=== PATIENT | female | born 1980 | race Caucasian/White ===

== ENCOUNTER 2021-02-21 11:16 | Inpatient (IN) | payer MEDICAID, OTHER ==
[~2021-02-21] VITALS: Ht 160 cm; Wt 72.7 kg
[~2021-02-21 11:16] MED LIST: CELE10TA PO; EFFE75CA75 OR; ESTRADIOL ACETATE; KEFL500C OR; LAMICTAL PO; LEVA500T; LYRI75CA; TERCONAZOLE; TRAZ100T OR; TRAZ50TA OR; TRAZODONE PO; TRIL600T PO; VICO5TAB OR; VIST50CA OR; VIVELLE; ZOLO100T OR
[2021-02-21 13:21] LABS: HEMATOCRIT 43.5 % (36.0-47.0); HEMOGLOBIN 14.4 g/dl (12.0-15.5); MEAN CORPUSCULAR HEMOGLOBIN 28.6 pg (27.0-33.0); MEAN CORPUSCULAR HGB CONC 33.1 g/dl (32.0-36.5); MEAN CORPUSCULAR VOLUME 86.5 fl (80.0-96.0); PLATELET COUNT, AUTOMATED 320 10^3/uL (150-450); RED BLOOD COUNT 5.03 10^6/uL (4.00-5.40); WHITE BLOOD COUNT 9.5 10^3/uL (4.0-10.0)
[2021-02-21 13:41] LABS: HCG, SERUM QUALITATIVE NEGATIVE (NEGATIVE)
[2021-02-21 13:58] LABS: ACETAMINOPHEN LEVEL < 2.0 UG/ML (10.0-30.0); ALBUMIN 4.7 GM/DL (3.2-5.2); ALT/SGPT 34 U/L (12-78); BILIRUBIN,DIRECT 0.1 MG/DL (0.0-0.2); BILIRUBIN,TOTAL 0.9 MG/DL (0.2-1.0); BLOOD UREA NITROGEN 16 MG/DL (7-18); CALCIUM LEVEL 9.5 MG/DL (8.5-10.1); CARBON DIOXIDE LEVEL 23 MEQ/L (21-32); CHLORIDE LEVEL 108 MEQ/L (98-107); CREATININE FOR GFR 0.85 MG/DL (0.55-1.30); ETHYL ALCOHOL (ETHANOL) < 0.003 % (0.000-0.010); GLOMERULAR FILTRATION RATE > 60.0 (>60); GLUCOSE, FASTING 98 MG/DL (70-100); POTASSIUM SERUM 4.5 MEQ/L (3.5-5.1); SALICYLATE LEVEL 2.5 MG/DL (5.0-30.0); SODIUM LEVEL 139 MEQ/L (136-145); TOTAL PROTEIN 8.6 GM/DL (6.4-8.2)
[2021-02-21 15:47] LABS: AMPHETAMINES LEVEL URINE NEGATIVE (NEGATIVE); BARBITURATES URINE NEGATIVE (NEGATIVE); BENZODIAZEPINES URINE NEGATIVE (NEGATIVE); CANNABINOIDS URINE NEGATIVE (NEGATIVE); COCAINE METABOLITE URINE NEGATIVE (NEGATIVE); METHADONE URINE NEGATIVE (NEGATIVE); OPIATES URINE NEGATIVE (NEGATIVE); PHENCYCLIDINE URINE NEGATIVE (NEGATIVE)
[2021-02-22] MEDS ORDERED: HYDR50TA70 PO (08:29)
[2021-02-22] MEDS ORDERED: estradioL 1 MG TAB PO SCH (09:00)
[2021-02-22 11:50] LABS: RSV AMPLIFICATION NEGATIVE (NEGATIVE)
[2021-02-22] MEDS ORDERED: ACETAMINOPHEN TAB 650MG DOSE (2X325MG) PO PRN (12:05)
[2021-02-22] MEDS ORDERED: MAALOX 30 ML SUSP *UDC PO PRN (12:05)
[2021-02-22] MEDS ORDERED: traZODone 50 MG TAB PO PRN (12:05)
[2021-02-22] MEDS ORDERED: MOM 30ML SUSPENSION UDC PO PRN (12:05)
[2021-02-22] MEDS ORDERED: ESTR0.5T3 PO (12:27)
[2021-02-22] MEDS ORDERED: HOME MED LIST COMPLETE! XX SCH (12:30)
[2021-02-22 14:54] VITALS: BP 135/109
[2021-02-22] MEDS: NICOTINE 21MG/24HR 1 EA TRANSDERMAL TD SCH (16:26)
[2021-02-22] MEDS: LORazepam 1 MG TAB PO PRN (20:32)
[2021-02-23] MEDS ORDERED: QUEtiapine FUMARATE 50MG TAB PO ONE (00:05)
[2021-02-23 06:11] VITALS: BP 125/76
[2021-02-23] MEDS ORDERED: ESTRADIOL 0.5 MG PO SCH (09:00)
[2021-02-23] MEDS ORDERED: ESTRADIOL PO SCH (09:00)
[2021-02-23] MEDS: estradioL 0.5MG HALF-TAB PO SCH (09:27)
[2021-02-23] MEDS: NICOTINE 21MG/24HR 1 EA TRANSDERMAL TD SCH (09:28)
--- NOTE | 2021-02-23 12:36 | MHHPEPDOC ---
General Date Of Admission: Feb 22, 2021 Legal Status: 9.39 Chief Complaint I am too tired to talk ". History of Present Illness HISTORY OF THE PRESENT ILLNESS: Patient is a 40 -year-old , female, who [has history of bipolar disorder with recent admission in December of this year but apparently has no ongoing outpatient treatment. Patient was brought to emergency room by police after she was acting quite bizarre in front of a [employer] building. Patient reportedly was claiming that 3 children were raped and killed and also claiming that she was sent by President [place] and is investigating sex trafficking. On the unit she apparently went to bed and slept and this morning when approached by the MD patient stated that she is too tired and sleepy to talk and refused to cooperate. The assessment is incomplete because of her refusal to cooperate. She appears somewhat elevated smiling inappropriately but in no acute distress.]. Psychiatric Review of Systems Depression (2 or more weeks): other (Patient denies any depression) Ellen (4 or more days of): flight of ideas Psychosis: delusions, paranoia, disorganization, other (Was acting bizarre and claims children being killed and raped) PTSD: denies, other Anxiety: other (Unable to evaluate) Anxiety/ 6 months or more of: other (Appears inappropriately elevated) Past Psychiatric History Previous Psychiatric Diagnosis: [Was a diagnosed with bipolar disorder as documented history of polysubstance abuse]. Previous Psychiatric Admissions: [Hospitalized at [facility] in 2013]. Suicide Attempts: [No documented history]. Psychiatric Follow-up: [Apparently not in any active treatment]. Psychiatric medications: [Unknown]. Past Medical History Medical Problems Documented history of having hysterectomy Head Injury: No Seizures: No Hospitalizations: Yes Surgeries: Yes (Past records shows patient's mother early age) Family Medical/Psychiatric HX Medical Problems Noncontributory Psychiatric Disorders: Yes (Patient's mother has a history of schizophrenia and substance abuse) Addiction: Yes (Mother has a history of substance abuse and father has a history of alcohol abuse) Suicide Attemps/Completions: No Addiction History other (Prior history of polysubstance abuse including opiate and cocaine.) Social History Childhood: [Patient's mother early and raised by her father and stepmother]. Abuse/Trauma: Unknown. Current Living Situation: [Unable to evaluate]. Education: Has high school education. 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 Social Support: [Unknown]. Legal: Unknown at this time. Marital: Was twice and has 3 children [her second was killed and he was an active duty soldier and she is getting VA benefits]. Mental Status Examination General Appearance: appears stated age Build: average Demeanor: preoccupied Eye Contact: avoidant Activity: anxious Behavior: uncooperative, agitated Speech: other (Refused to talk) Mood: irritable, elevated Mood Unable to evaluate patient reportedly was making statements about not wanting to wake up but also was very pressured and flighty Thought Process: other (Unable to evaluate) Thought Content (Delusions): bizarre, paranoia, delusions Thought Content (Other): other (Unable to evaluate) Thought Content (Aggressive): other (Was acting bizarre) Perception (Hallucinations): other (Possibly hallucinating) Cognition (Impairment of): other (Unable to evaluate) Cognition(Intelligence Est.): average (Poor history) Oriented: Awake, Alert Insight: poor Judgment: Poor Diagnoses Psychotic disorder NOS rule out bipolar disorder manic with psychosis A-FIB/CHADSVASC A-FIB History Current/History of A-Fib/PAF?: No Current PO Anticoag Therapy: No Age/Risk Factor Scoring CHADSVASC: CHADSVASC Response (Comments) Value Gender Risk Factor Female 1 Hx of CHF No 0 Hx of HTN No 0 Hx of Stroke/TIA/or VTE No 0 Hx of Diabetes No 0 Hx of Vascular Disease No 0 Total 1 Treatment Treatment ordered: NONE Assessment The patient appears grossly psychotic with long history of bipolar disorder. On admission tox continues negative for any drugs. She has been stable in the past admission with the lithium and risperidone but apparently she has not been compliant. She needs stabilization with medication and supportive therapy. Initial Treatment Plan 1. Patient was admitted on a 9.39 status. 2. Complete history was obtained. 3. With patients permission, family will be contacted and database will be expanded. 4. Patients medication regimen will be reviewed and changed accordingly. 5. Patient will be provided with protected environment. 6. Patient will be treated with individual, group, and milieu therapies. 7. Patient will receive supportive psych-education. 8. Discharge planning will commence immediately. 9. Outpatient follow-up treatment will be strongly recommended. 10. The initial treatment plan will focus initially on: * Depression. * Risk for suicide. ESTIMATED LENGTH OF STAY: 5-7 DAYS. TIME SPENT COUNSELING AND COORDINATING INITIAL CARE: 40 minutes. Tobacco Cessation Screen If Patient is a Smoker Smoker Complete/Results docum. Vital Signs Vital Signs Date Time Temp Pulse Resp B/P (MAP) Pulse Ox O2 Delivery O2 Flow Rate FiO2 02/23/21 06:11 97.7 85 18 125/76 (92) 100 Room Air Medications Scheduled Estradiol (Estrace) 0.5 Mg Tablet, 0.5 MG PO DAILY, (Reported) Hydroxyzine HCl (Hydroxyzine HCl) 50 Mg Tablet, 50 MG PO BID, (Reported) Allergies Coded Allergies: pineapple (Verified Allergy, Unknown, hives, 02/21/21) NSAIDS (Non-Steroidal Anti-Inflamma (Verified Adverse Reaction, Unknown, upset stomach, 02/21/21) ibuprofen (Verified Adverse Reaction, Unknown, vomiting, 02/21/21) EUNICE LOOMIS M.D. Feb 23, 2021 12:36
[2021-02-23] MEDS: LORazepam 1 MG TAB PO PRN (16:45)
--- NOTE | 2021-02-23 18:51 | HPEPDOC ---
[facility] Medical History & Physical Date of Admission Feb 22, 2021 Date of Service: Feb 23, 2021 History and Physical CHIEF COMPLAINT: Psychosis HISTORY OF PRESENT ILLNESS: Mrs. Gilmore is a 40 year old female who is in the inpatient mental health unit with psychosis. She was seen this afternoon. She feels physical fine. She recently had a total hysterectomy and is on Estradiol to reduce ovarian failure effects. She denies any fever/chills, chest pain, dyspnea, abdominal pain, or dysuria. Patient had pressured speech. She was asking about nicotine gum. I discussed this with the nurses, and we felt that it would be better for her to stay on the patch. PAST MEDICAL HISTORY: 1. Migraines 2. Hepatitis C 3. Constipation 4. Ovarian failure due to total hysterectomy PAST SURGICAL HISTORY: 1. Total hysterectomy 2. Laparoscopic cholecystectomy 3. x3 SOCIAL HISTORY: Tobacco use: Current smoker ETOH: Denies Illicit drug use: Denies FAMILY HISTORY: Declined answering past family history. Tells me it is in the chart. I do not see it in the chart ALLERGIES: Please see below. REVIEW OF SYSTEMS: CONSTITUTIONAL: Denies any fever or chills. ENT: Denies sore throat. RESPIRATORY: Denies shortness of breath. Denies cough. CARDIOVASCULAR: Denies chest pain. GASTROINTESTINAL: Denies abdominal pain. GENITOURINARY: Denies dysuria. CUTANEOUS: Denies rashes. HEMATOLOGICAL/ONCOLOGY: Denies bruises. NEUROLOGICAL: Denies paresthesias. PSYCHOLOGICAL: Reports anxiety. Reports depression. HOME MEDICATIONS: Please see below. PHYSICAL EXAMINATION: VITAL SIGNS: Temperature 97.7, pulse 85, respiratory rate 18, blood pressure 125/76, pulse oximetry 100% on room air. GENERAL: Comfortable, in no apparent distress. HEENT: EOMI, sclera clear. NECK: Supple. RESPIRATORY: Lungs clear to auscultation bilaterally, no rales, wheeze or rh onchi. CARDIOVASCULAR: Regular rate and rhythm. ABDOMEN: Soft, nontender, no guarding or rebound tenderness. Normal bowel sounds . MUSCLE SKELETAL: Muscle strength 5/5 in all extremities. NEUROLOGICAL: CN 312 grossly intact, no focal deficits noted. PSYCHOLOGICAL: Pressured speech, suspect manic LABORATORY DATA: See below. IMAGING: None MICROBIOLOGY: Please see below. ASSESSMENT and PLAN: 1. Psychosis Being managed in the inpatient mental health unit 2. Postsurgical ovarian failure Continue estradiol Thank you for consulting us. We will sign off at this time. If there is any further questions or concerns, please do not hesitate to reconsult us. Vital Signs Vital Signs Date Time Temp Pulse Resp B/P (MAP) Pulse Ox O2 Delivery O2 Flow Rate FiO2 02/23/21 06:11 97.7 85 18 125/76 (92) 100 Room Air Home Medications Scheduled Estradiol (Estrace) 0.5 Mg Tablet, 0.5 MG PO DAILY Hydroxyzine HCl (Hydroxyzine HCl) 50 Mg Tablet, 50 MG PO BID Allergies Coded Allergies: pineapple (Verified Allergy, Unknown, hives, 02/21/21) NSAIDS (Non-Steroidal Anti-Inflamma (Verified Adverse Reaction, Unknown, upset stomach, 02/21/21) ibuprofen (Verified Adverse Reaction, Unknown, vomiting, 02/21/21) A-FIB/CHADSVASC A-FIB History Current/History of A-Fib/PAF?: No Age/Risk Factor Scoring CHADSVASC: CHADSVASC Response (Comments) Value Gender Risk Factor Female 1 Hx of CHF No 0 Hx of HTN No 0 Hx of Stroke/TIA/or VTE No 0 Hx of Diabetes No 0 Hx of Vascular Disease No 0 Total 1 SEPGHULAM DO Feb 23, 2021 18:51
[2021-02-23 19:20] VITALS: BP 119/71
[2021-02-23] MEDS ORDERED: QUEtiapine FUMARATE 100 MG TAB PO SCH (21:00)
[2021-02-24] MEDS: estradioL 0.5MG HALF-TAB PO SCH (08:03)
[2021-02-24] MEDS: NICOTINE 21MG/24HR 1 EA TRANSDERMAL TD SCH (08:03)
--- NOTE | 2021-02-24 08:27 | MHIPNPDOC ---
[facility] Progress Note Progress Note DATE OF SERVICE: 02/24/21 The patient is alert awake and much more cooperative and verbally productive. She is however very pressured flighty talking fast and quite easily distracted. She claims that everybody told her that there sex trafficking going on and several children were in danger but does not know who they were. She is grossly delusional and quite manic with elevated mood and smiling inappropriately. She claims that she stopped taking lithium because it was making her too tired and could not function and has been staying in a halfway but working with social service to get her SSD and SSI approved. She stated that risperidone 4 mg was too much for her and does not really believe she needs any medications and refused to take Seroquel last night but reluctantly agreed to start taking small dose of risperidone. HISTORY:. VITAL SIGNS: See below. NEW TEST RESULTS:. CURRENT MEDICATIONS: See below. MENTAL STATUS EXAMINATION: Patient is a 40-year old female, who is in no acute distress. Speech: Is pressured flighty. Language skills are fair. Thought processes including: Very productive and pressured. Thought content: Preoccupied with the delusional thoughts but denies any suicidal thoughts. Abstract reasoning, and computation: Poor. Description of associations: Very flighty. Description of abnormal or psychotic thoughts: Grossly delusional but denies any command hallucination. Judgment: Poor. Insight: Poor. Orientation: Well oriented. Recent and remote memory: Unimpaired. Attention span and concentration: Poor. Language:. Fund of knowledge:. Mood: Elevated. Affect: Inappropriately elevated and labile. DIAGNOSES: 1.. Bipolar disorder manic with psychotic features 2.. Rule out schizoaffective disorder 3.. ASSESSMENT: Grossly manic with delusional thoughts MANAGEMENT PLAN: Patient is refusing lithium but agreed to take risperidone. Needs stabilization. TIME SPENT: 20 minutes. Vital Signs Vital Signs Date Time Temp Pulse Resp B/P (MAP) Pulse Ox O2 Delivery O2 Flow Rate FiO2 02/23/21 19:20 97.2 77 16 119/71 (87) 02/23/21 06:11 100 Room Air Current Medications Current Medications Medications (Trade) Dose Ordered Sig/Darrick Route PRN Reason Start Time Stop Time Status Last Admin Dose Admin Acetaminophen (Tylenol Tab) 650 mg Q6HP PRN PO HEADACHE or MILD DISCOMFORT 02/22/21 12:05 Al Hydrox/Mg Hydrox/Simethicone (Mylanta) 30 ml Q4HP PRN PO HEARTBURN/INDIGESTION 02/22/21 12:05 Estradiol (Estrace Susp) 0.5 mg DAILY PO 02/23/21 09:00 02/23/21 10:56 DC Estradiol (Estrace) 0.5 mg DAILY PO 02/22/21 09:00 02/22/21 20:00 DC Estradiol (Estrace) 0.5 mg DAILY PO 02/23/21 09:00 02/24/21 08:03 Home Med (Home Med List Complete!) ASDIRECTED XX 02/22/21 12:30 02/22/21 12:30 DC Lorazepam (Ativan) 1 mg Q4HP PRN PO ANXIETY/AGITATION 02/22/21 20:15 02/23/21 16:45 Magnesium Hydroxide (Milk Of Magnesia) 30 ml DAILYPRN PRN PO CONSTIPATION 02/22/21 12:05 Nicotine (Nicoderm Cq 21mg) 1 patch DAILY TD 02/22/21 09:00 02/24/21 08:03 Olanzapine (ZyPREXA ZYDIS) 10 mg Q4HP PRN PO ANXIETY/AGITATION 02/22/21 12:40 Patient Own Medication (Patient'S Own Med) Estradiol (Estrace) 0.... DAILY PO 02/23/21 09:00 02/23/21 08:21 DC Quetiapine Fumarate (SEROquel) 100 mg QHS PO 02/23/21 21:00 Trazodone HCl (Desyrel) 50 mg QHSP PRN PO INSOMNIA 02/22/21 12:05 Allergies Coded Allergies: pineapple (Verified Allergy, Unknown, hives, 02/21/21) NSAIDS (Non-Steroidal Anti-Inflamma (Verified Adverse Reaction, Unknown, upset stomach, 02/21/21) ibuprofen (Verified Adverse Reaction, Unknown, vomiting, 02/21/21) EUNICE LOOMIS M.D. Feb 24, 2021 08:27
[2021-02-24] MEDS: LORazepam 1 MG TAB PO PRN ×2 (09:31→20:07)
[2021-02-24] MEDS: NICOTINE POLACRILEX 2 MG GUM PO PRN ×2 (11:34→20:09)
[2021-02-24 17:12] VITALS: BP 147/85
[2021-02-24] MEDS: risperiDONE 2 MG TAB PO SCH (20:07)
[2021-02-25 07:18] VITALS: BP 142/96
[2021-02-25] MEDS: estradioL 0.5MG HALF-TAB PO SCH (09:56)
[2021-02-25] MEDS: NICOTINE POLACRILEX 2 MG GUM PO PRN ×3 (11:08→19:32)
[2021-02-25] MEDS: LORazepam 1 MG TAB PO PRN ×2 (12:55→20:18)
[2021-02-25 17:10] VITALS: BP 119/85
[2021-02-25] MEDS: risperiDONE 2 MG TAB PO SCH (20:19)
[2021-02-26] MEDS: NICOTINE POLACRILEX 2 MG GUM PO PRN ×4 (03:13→17:51)
[2021-02-26 06:36] VITALS: BP 118/59
[2021-02-26] MEDS: estradioL 0.5MG HALF-TAB PO SCH (09:24)
--- NOTE | 2021-02-26 11:48 | MHIPN ---
[facility] PROGRESS NOTE DATE: 02/25/2021 This is a video assessment. She is aware of it, agrees to it and its limitations. She is in the inpatient psychiatry unit, I am at home. VITAL SIGNS: Blood pressure 119/85, pulse 99, temperature 97.8 CHIEF COMPLAINT: Feels better SUBJECTIVE: Seen for followup. Indicates feels better and that she slept better. Does not think needs a higher dose of risperidone. Says had been on that, as well as other psychotropics, including lithium, together in the past, but says that was not effective. MENTAL STATUS EXAMINATION: Neat, cooperative. Coherent. Speech somewhat overproductive. Affect fairly broad, possibly a bit expansive. Denies any thoughts of harming herself or anyone else. No evidence of any psychosis at present. Cognition grossly intact. Judgment and insight possibly improved, but remains compromised. ASSESSMENT: 1. Bipolar disorder, current episode manic with psychotic features. 2. Rule out schizoaffective disorder. PLAN: Continue current care, observations. Encourage participation and activates as tolerated. Continue with the risperidone at the current dose. Further recommendation to be made depending on the clinical picture.
[2021-02-26] MEDS: LORazepam 1 MG TAB PO PRN ×2 (12:15→21:26)
[2021-02-26] MEDS: OLANZapine ORAL DISINTEGRATING TAB 5MG PO PRN (17:22)
[2021-02-26 18:15] VITALS: BP 121/69
[2021-02-26] MEDS: risperiDONE 2 MG TAB PO SCH (21:26)
[2021-02-27 06:40] VITALS: BP 116/80
[2021-02-27] MEDS: OLANZapine ORAL DISINTEGRATING TAB 5MG PO PRN (06:41)
[2021-02-27] MEDS: NICOTINE POLACRILEX 2 MG GUM PO PRN ×4 (06:41→20:02)
[2021-02-27] MEDS: LORazepam 1 MG TAB PO PRN ×2 (09:23→22:41)
[2021-02-27] MEDS: estradioL 0.5MG HALF-TAB PO SCH (09:24)
--- NOTE | 2021-02-27 11:34 | MHIPN ---
[facility] PROGRESS NOTE DATE: 02/26/2021 VITAL SIGNS: Blood pressure 118/59, pulse 69, temperature 97.5. This is a video assessment, she is aware of it, agrees to it. CHIEF COMPLAINT: Says feels okay. SUBJECTIVE: Seen for followup. Indicates feels okay, and is eager to leave, suggests has things to do, including at the local snf. Says has various appointments to attend. Indicates slept okay, overall, but is vague on this. Appetite is okay. MENTAL STATUS EXAMINATION: Neat, cooperative, no agitation, no psychomotor retardation, speech productive, not overly so, broad affect, currently denies any thoughts of harming herself or anyone else, there is no evidence of any psychosis overtly as such. Judgment and insight though improved possibly remain compromised. ASSESSMENT: Bipolar disorder, current episode manic with psychotic features. Rule out schizoaffective disorder. PLAN: Continue current care, including the risperidone, does not wish further changes, I would suggest encouraging her to participate in activities, and tomorrow explore psychosocial matters, those that impact her, including involvement with various agencies, to assist her. She will be seeing the assigned clinicians tomorrow, and further recommendations may be made.
--- NOTE | 2021-02-27 16:31 | MHIPNPDOC ---
[facility] Progress Note Progress Note DATE OF SERVICE: 02/27/21 HISTORY: Patient is a 40-year-old woman with a history of bipolar disorder and last admission was December of this year. Per chart review has not followed up with outpatient provider and presented to the emergency room by police due to bizarre behavior at the [employer] building. Interval: Was present with patient and cavalry officer. During interview she is frustrated stating she wants to leave and has no reason to be here seems to have limited understanding what brought her into the hospital in the first place, was clenching fists and became pressured in speech stating" it is to do with MK ultra". States she slept only a couple of hours, but refuses to have any medication changes at this time. VITAL SIGNS: See below. NEW TEST RESULTS: none CURRENT MEDICATIONS: See below. MENTAL STATUS EXAMINATION: Patient is a 40-year old female, who is somewhat disheveled, with Matted hair, looking around, poor hygiene, appears older than stated age. Speech: Is pressured and increased in amount. Language skills are poor. Thought processes including: Tangential, disorganized at times. Thought content: Denies suicidal thoughts or homicidal thoughts. Abstract reasoning, and computation: Fair. Description of associations: Fair. Description of abnormal or psychotic thoughts: Denies, but appears to be looking around the room at times. Judgment: Poor. Insight: Poor. Orientation: To person and place. Recent and remote memory: Fair. Attention span and concentration: Poor. Language: Intact. Fund of knowledge: Unable to fully assess per interview. Mood: Irritable, frustrated. Affect: Hypomanic, irritable, labile, was interruptible at times DIAGNOSES: 1. Bipolar disorder, manic with psychotic features 2. Rule out schizoaffective disorder, schizophrenia ASSESSMENT: MANAGEMENT PLAN: Continue with current medication regimen, refuses medication dose changes or medication changes, but agrees to continue current dose of risperidone. We will continue to encourage to make medication changes to stabilize hypomanic condition. has as needed olanzapine 10 mg every 4 hours as needed for anxiety or agitation, has trazodone 50 mg as needed for insomnia. TIME SPENT: 15 minutes. Vital Signs Vital Signs Date Time Temp Pulse Resp B/P (MAP) Pulse Ox O2 Delivery O2 Flow Rate FiO2 02/27/21 06:40 97.6 80 18 116/80 (92) 02/26/21 06:36 100 Room Air Current Medications Current Medications Medications (Trade) Dose Ordered Sig/Darrick Route PRN Reason Start Time Stop Time Status Last Admin Dose Admin Acetaminophen (Tylenol Tab) 650 mg Q6HP PRN PO HEADACHE or MILD DISCOMFORT 02/22/21 12:05 Al Hydrox/Mg Hydrox/Simethicone (Mylanta) 30 ml Q4HP PRN PO HEARTBURN/INDIGESTION 02/22/21 12:05 Estradiol (Estrace Susp) 0.5 mg DAILY PO 02/23/21 09:00 02/23/21 10:56 DC Estradiol (Estrace) 0.5 mg DAILY PO 02/22/21 09:00 02/22/21 20:00 DC Estradiol (Estrace) 0.5 mg DAILY PO 02/23/21 09:00 02/27/21 09:24 Home Med (Home Med List Complete!) ASDIRECTED XX 02/22/21 12:30 02/22/21 12:30 DC Lorazepam (Ativan) 1 mg Q4HP PRN PO ANXIETY/AGITATION 02/22/21 20:15 02/27/21 09:23 Magnesium Hydroxide (Milk Of Magnesia) 30 ml DAILYPRN PRN PO CONSTIPATION 02/22/21 12:05 Miscellaneous (Unresolved Clarification Entry) SEE LABEL COMMENTS UNRESOLVED XX 02/28/21 00:01 Nicotine (Nicoderm Cq 21mg) 1 patch DAILY TD 02/22/21 09:00 02/24/21 08:29 DC 02/24/21 08:03 Nicotine (Nicorette) 2 mg Q4HP PRN PO NICOTINE WITHDRAWAL 02/24/21 08:30 02/27/21 16:07 Olanzapine (ZyPREXA ZYDIS) 10 mg Q4HP PRN PO ANXIETY/AGITATION 02/22/21 12:40 02/27/21 06:41 Patient Own Medication (Patient'S Own Med) Estradiol (Estrace) 0.... DAILY PO 02/23/21 09:00 02/23/21 08:21 DC Quetiapine Fumarate (SEROquel) 100 mg QHS PO 02/23/21 21:00 02/24/21 08:29 DC Risperidone (RisperDAL) 2 mg QHS PO 02/24/21 21:00 02/26/21 21:26 Trazodone HCl (Desyrel) 50 mg QHSP PRN PO INSOMNIA 02/22/21 12:05 Allergies Coded Allergies: pineapple (Verified Allergy, Unknown, hives, 02/21/21) NSAIDS (Non-Steroidal Anti-Inflamma (Verified Adverse Reaction, Unknown, upset stomach, 02/21/21) ibuprofen (Verified Adverse Reaction, Unknown, vomiting, 02/21/21) ZACHARIAH ELLIS MD Feb 27, 2021 16:31
[2021-02-27 17:42] VITALS: BP 105/60
[2021-02-27] MEDS: risperiDONE 2 MG TAB PO SCH (20:02)
[2021-02-28] MEDS: UNRESOLVED CLARIFICATION ENTRY XX SCH (00:01)
[2021-02-28] MEDS: NICOTINE POLACRILEX 2 MG GUM PO PRN (08:08)
[2021-02-28] MEDS: estradioL 0.5MG HALF-TAB PO SCH (08:08)
[2021-02-28] MEDS ORDERED: risperiDONE LONG-ACTING 25 MG/2 ML INJ (J2794 PER 0.5MG) IM SCH (09:00)
[2021-02-28] MEDS: LORazepam 1 MG TAB PO PRN ×2 (10:39→20:04)
[2021-02-28] MEDS ORDERED: NICOTINE 21MG/24HR 1 EA TRANSDERMAL TD ONE (12:00)
--- NOTE | 2021-02-28 13:26 | MHIPNPDOC ---
[facility] Progress Note Progress Note DATE OF SERVICE: 02/28/21 HISTORY: Patient is a 40-year-old woman with a history of bipolar disorder and last admission was December of this year. Per chart review has not followed up with outpatient provider and presented to the emergency room by police due to bizarre behavior at the [employer] [facility]. Interval: Was present with project controller, met with treatment team. Discussed with her past non-compliance and how IM risperdal consta can help with compliance to help prevent manic episodes. Still wants to take nighttime dose for sleep and mood control. Denies suicidal thoughts, intent or plan. VITAL SIGNS: See below. NEW TEST RESULTS: none CURRENT MEDICATIONS: See below. MENTAL STATUS EXAMINATION: Patient is a 40-year old female, who is somewhat disheveled, with Matted hair, looking around, poor hygiene, appears older than stated age. Speech: increased amount, non-pressured Language skills are poor. Thought processes including: coherent, linear, logical Thought content: Denies suicidal thoughts or homicidal thoughts. Abstract reasoning, and computation: Fair. Description of associations: Fair. Description of abnormal or psychotic thoughts: Denies Judgment: Fair, improving Insight: Good Orientation: To person and place. Recent and remote memory: Fair. Attention span and concentration: Poor. Language: Intact. Fund of knowledge: Unable to fully assess per interview. Mood: Less irritable Affect: No longer hypomanic, calmer, organized DIAGNOSES: 1. Bipolar disorder, manic with psychotic features 2. Rule out schizoaffective disorder, schizophrenia ASSESSMENT: Consents to 25 mg Risperdal consta iM [id number], made aware has similar side effects to risperdal apart form arm pain, swelling. MANAGEMENT PLAN: Start risperdal consta 25 mg, agrees to continue current dose of qhs 2 mg risperidone. Agreeable with discharge plan tomorrow if remains stable, has outpatient [facility] provider appointment on 03/01/21, [facility] PCP and agrees t going [facility]. has as needed olanzapine 10 mg every 4 hours as needed for anxiety or agitation, has trazodone 50 mg as needed for insomnia. TIME SPENT: 35 minutes. Vital Signs Vital Signs Date Time Temp Pulse Resp B/P (MAP) Pulse Ox O2 Delivery O2 Flow Rate FiO2 02/27/21 17:42 98.9 93 16 105/60 (75) 100 Room Air Current Medications Current Medications Medications (Trade) Dose Ordered Sig/Darrick Route PRN Reason Start Time Stop Time Status Last Admin Dose Admin Acetaminophen (Tylenol Tab) 650 mg Q6HP PRN PO HEADACHE or MILD DISCOMFORT 02/22/21 12:05 Al Hydrox/Mg Hydrox/Simethicone (Mylanta) 30 ml Q4HP PRN PO HEARTBURN/INDIGESTION 02/22/21 12:05 Estradiol (Estrace Susp) 0.5 mg DAILY PO 02/23/21 09:00 02/23/21 10:56 DC Estradiol (Estrace) 0.5 mg DAILY PO 02/22/21 09:00 02/22/21 20:00 DC Estradiol (Estrace) 0.5 mg DAILY PO 02/23/21 09:00 02/28/21 08:08 Home Med (Home Med List Complete!) ASDIRECTED XX 02/22/21 12:30 02/22/21 12:30 DC Lorazepam (Ativan) 1 mg Q4HP PRN PO ANXIETY/AGITATION 02/22/21 20:15 02/28/21 10:39 Magnesium Hydroxide (Milk Of Magnesia) 30 ml DAILYPRN PRN PO CONSTIPATION 02/22/21 12:05 Miscellaneous (Unresolved Clarification Entry) SEE LABEL COMMENTS UNRESOLVED XX 02/28/21 00:01 Nicotine (Nicoderm Cq 21mg) 1 patch DAILY TD 02/22/21 09:00 02/24/21 08:29 DC 02/24/21 08:03 Nicotine (Nicoderm Cq 21mg) 1 patch DAILY TD 03/01/21 09:00 Nicotine (Nicorette) 2 mg Q4HP PRN PO NICOTINE WITHDRAWAL 02/24/21 08:30 02/28/21 12:01 DC 02/28/21 08:08 Olanzapine (ZyPREXA ZYDIS) 10 mg Q4HP PRN PO ANXIETY/AGITATION 02/22/21 12:40 02/27/21 06:41 Patient Own Medication (Patient'S Own Med) Estradiol (Estrace) 0.... DAILY PO 02/23/21 09:00 02/23/21 08:21 DC Quetiapine Fumarate (SEROquel) 100 mg QHS PO 02/23/21 21:00 02/24/21 08:29 DC Risperidone (RisperDAL Consta) 25 mg Q14D@09 IM 03/14/21 09:00 UNV Risperidone (RisperDAL) 2 mg QHS PO 02/24/21 21:00 02/27/21 20:02 Trazodone HCl (Desyrel) 50 mg QHSP PRN PO INSOMNIA 02/22/21 12:05 Allergies Coded Allergies: pineapple (Verified Allergy, Unknown, hives, 02/21/21) NSAIDS (Non-Steroidal Anti-Inflamma (Verified Adverse Reaction, Unknown, upset stomach, 02/21/21) ibuprofen (Verified Adverse Reaction, Unknown, vomiting, 02/21/21) ZACHARIAH ELLIS MD Feb 28, 2021 13:18
[2021-02-28 16:24] VITALS: BP 132/85
[2021-02-28] MEDS: OLANZapine ORAL DISINTEGRATING TAB 5MG PO PRN (16:34)
[2021-02-28] MEDS: risperiDONE 2 MG TAB PO SCH (20:04)
[2021-03-01] MEDS: UNRESOLVED CLARIFICATION ENTRY XX SCH (00:01)
[2021-03-01 06:52] VITALS: BP 119/78
[2021-03-01] MEDS: LORazepam 1 MG TAB PO PRN (08:58)
[2021-03-01] MEDS: estradioL 0.5MG HALF-TAB PO SCH (08:58)
[2021-03-01] MEDS ORDERED: NICOTINE 21MG/24HR 1 EA TRANSDERMAL TD SCH (09:00)
[2021-03-01] MEDS ORDERED: RISP25INJ IM (09:38)
[2021-03-01] MEDS ORDERED: TRAZ-252 PO (09:38)
[2021-03-01] MEDS ORDERED: RISP-9 PO (09:38)
[2021-03-01] MEDS ORDERED: NICO21PAT TD (09:38)
--- NOTE | 2021-03-02 21:51 | MHDSPDOC ---
[facility] Discharge Summary Discharge Summary DATE OF ADMISSION: Feb 22, 2021 at 12:05 DATE OF DISCHARGE: March 01, 2021 DISCHARGE DIAGNOSES: 1. Bipolar disorder, type I 2. Tobacco use disorder REASON FOR ADMISSION: Patient is a 40-year-old woman with a history of bipolar disorder and last admission was December of this year. Per chart review has not followed up with outpatient provider and presented to the emergency room by police due to bizarre behavior at the [facility] building. Refer to H&P for further details. CONSULTANTS INVOLVED: See medical H&P by hospitalist TREATMENT AND PROGRESS ON THE UNIT : Patient was admitted to the [facility] on a 9.39 legal status, and has afforded the following treatment modalities. 1. Individual therapy 2. Group therapy 3. Medication management 4. Milieu therapy 5. Safe environment HOSPITAL COURSE: Patient was admitted to the [facility] on a 9.39 legal status after being medically cleared in the ED. Basic labs were done and she was started on home medications. Patient found medications beneficial and tolerated them without side effects. Initial manic symptoms improved during the course of treatment, on early continues patient is pressured, hyperverbal, agitated and irritable. Was started on oral risperidone after being made aware of common and rare side effects including but not limited to EPS, TD, hormonal changes, metabolic changes and given a risperidone constant 25 mg IM (every 2-week injection) on 02/28/21 with good effect, afterwards patient denied significant pain or swelling at injection site and also denied side effects. During the course of treatment Stabilized and symptoms of hypomania and paranoia and mood reduced. Proza also has no AIMS testing was done prior to discharge with a score of 0. Prior to discharge she was given a paper script for every 3 months fasting labs, also made aware to have an annual EKG, routine BMI monitoring. DISCHARGE ASSESSMENT: Today's interview patient is alert and oriented, her hygiene is improved and grooming is good, she is dressed appropriately. She is fully engaged in the interview and is pleasant and cooperative. Denies depression and anxiety or rogers symptoms. Denies suicidal or homicidal ideation, plan or intent. Denies and is not observed to have psychotic symptoms of bizarre thinking, delusions, obsessions, paranoia, ruminations, logical thoughts, flight of ideas or having poor insight or judgment. Patient has normal mentation, de declines further hospitalization voluntary status meets criteria for discharge today. Patient encouraged to return the hospital symptoms worsen or change encouraged to call unit if she needs to speak to a provider for questions regarding medications or care. MENTAL STATUS EXAMINATION ON DISCHARGE: Patient is a 40-year old female, who appears older than stated age, short brown hair, dressed appropriately for weather, improved eye contact, improved hygiene. Speech is normal rate, amount, volume Language skills are intact Thought processes including: Linear and logical Thought content: Denies suicidal or homicidal ideation or plan or intent Abstract reasoning, and computation: Normal Description of associations: Normal Description of abnormal or psychotic thoughts: No psychotic thoughts noted or reported including hallucinations, delusions, paranoia Judgment: Fair Insight: Good Orientation to person time place Recent and remote memory: Intact Attention span and concentration: Fair Language: Azeri Fund of knowledge: Average Mood: "good" Affect: Euthymic, less irritable, mood congruent, appropriate. MEDICATIONS ON DISCHARGE: see medication reconciliation PLAN/FOLLOWUP ARRANGEMENTS: Psychiatry appointment at [facility] March 02, 2021, therapy appointment with Arvin Stevens March 10, 2021 medical appointment at [facility] March 13, 2021 The amount of time spent in the coordination of care for this patient was approximately 30 minutes. ETOH/Disorder Med Rx ETOH/DRUG DISORDER RX: Given to pt at d/c (nicotine patch) Vital Signs/I&Os Vital Signs Date Time Temp Pulse Resp B/P (MAP) Pulse Ox O2 Delivery O2 Flow Rate FiO2 03/01/21 06:52 97.1 83 18 119/78 (92) 98 Room Air Medications Scheduled Estradiol (Estrace) 0.5 Mg Tablet, 0.5 MG PO DAILY, (Reported) Hydroxyzine HCl (Hydroxyzine HCl) 50 Mg Tablet, 50 MG PO BID, (Reported) Nicotine (Nicotine Patch) 21 Mg Patch.td24, 1 PATCH TD DAILY for tobacco use for 7 Days, #7 Risperidone (Risperdal Consta) 25 Mg/2 Ml Syringe, 25 MG IM Q14D@09 for bipolar, #1 Risperidone (Risperidone) 2 Mg Tablet, 2 MG PO QHS for bipolar for 7 Days, #7 Scheduled PRN Trazodone HCl (Trazodone HCl) 50 Mg Tablet, 50 MG PO QHSP PRN for INSOMNIA, #7 Allergies Coded Allergies: pineapple (Verified Allergy, Unknown, hives, 02/21/21) NSAIDS (Non-Steroidal Anti-Inflamma (Verified Adverse Reaction, Unknown, upset stomach, 02/21/21) ibuprofen (Verified Adverse Reaction, Unknown, vomiting, 02/21/21) ZACHARIAH ELLIS MD Mar 01, 2021 11:45
== END 2021-03-01 13:15 | disposition home or self-care (01) | DRG 885 ==
LOC: M ED 11:16 → M ED INP 02-22 12:05 → M PSY 02-22 14:47
PROVIDERS: ADMIT Psychiatry & Neurology Psychiatry; ATTEND Student in an Organized Health Care Education/Training Program
DX: F31.2 Bipolar disorder, current episode manic severe with psychotic features (principal); F17.210 Nicotine dependence, cigarettes, uncomplicated; Z79.899 Other long term (current) drug therapy; Z88.6 Allergy status to analgesic agent; Z91.018 Allergy to other foods; Z88.8 Allergy status to other drugs, medicaments and biological substances; G40.909 Epilepsy, unspecified, not intractable, without status epilepticus; K59.00 Constipation, unspecified; B19.20 Unspecified viral hepatitis C without hepatic coma; Z20.822 Contact with and (suspected) exposure to COVID-19

== ENCOUNTER 2021-06-14 14:59 | Emergency (ER) | payer OTHER ==
[~2021-06-14] VITALS: Ht 160 cm; Wt 75.7 kg
[~2021-06-14 14:59] MED LIST changes: +BENZ-52 PO; +BUPR75TA5 PO; +DOCU100C16 PO; +DOK1CAP4 PO; +ESTR0.5T3 PO; +HYDR50TA70 PO; +LITH300C PO; +NICO21DI37 TD; +NICO21DI9 TD; +NICO21PAT TD; +RISP-9 PO; +RISP25INJ IM; +RISP2TAB32 PO; +TRAZ-252 PO
[2021-06-14 15:00] VITALS: BP 111/74
[2021-06-14 16:56] LABS: RSV AMPLIFICATION POSITIVE (NEGATIVE)
== END 2021-06-14 23:20 | disposition left against medical advice (07) ==
LOC: M ED 14:59 → MERGE 14:59 → M ED 23:20
DX: Z53.21 Procedure and treatment not carried out due to patient leaving prior to being seen by health care provider (principal)

== ENCOUNTER → 2022-02-27 | Outpatient (CLI) | payer MEDICAID, OTHER | LOC: M WHC 12:43 | PROVIDERS: ATTEND Obstetrics & Gynecology | DX: Z12.31 Encounter for screening mammogram for malignant neoplasm of breast (principal) ==

== ENCOUNTER 2022-03-12 16:51 | Emergency (ER) | payer OTHER, MEDICAID ==
[~2022-03-12] VITALS: Ht 160 cm; Wt 75.4 kg
[2022-03-12 16:52] VITALS: BP 150/87
[2022-03-12 19:55] LABS: CK-MB VALUE MASS < 1.0 NG/ML (<3.6); CPK CREATINE PHOSPHOKINASE 86 U/L (26-192); MB/CK RELATIVE INDEX 1.16 (< OR =4)
[2022-03-12 20:07] LABS: ALBUMIN 4.1 GM/DL (3.2-5.2); ALT/SGPT 33 U/L (12-78); BILIRUBIN,DIRECT 0.3 MG/DL (0.0-0.2); BILIRUBIN,TOTAL 0.4 MG/DL (0.2-1.0); BLOOD UREA NITROGEN 16 MG/DL (7-18); CALCIUM LEVEL 9.7 MG/DL (8.5-10.1); CARBON DIOXIDE LEVEL 22 MEQ/L (21-32); CHLORIDE LEVEL 110 MEQ/L (98-107); GLOMERULAR FILTRATION RATE > 60.0 (>58); GLUCOSE, FASTING 85 MG/DL (70-100); SODIUM LEVEL 141 MEQ/L (136-145); THYROXINE (T4) 11.9 UG/DL (4.5-12.0); TOTAL PROTEIN 7.6 GM/DL (6.4-8.2)
[2022-03-12 20:12] LABS: HCG, SERUM QUALITATIVE NEGATIVE (NEGATIVE)
[2022-03-12] MEDS ORDERED: SUCRALFATE 1 GM TAB PO ONE (21:15)
[2022-03-12] MEDS ORDERED: GI COCKTAIL 50ML BTL(HYOSCYAMINE/MAALOX/LIDOCAINE VISCOUS)(1:3:1) PO ONE (21:15)
[2022-03-12] MEDS ORDERED: PANTOPRAZOLE 40MG VIAL IV ONE (21:15)
[2022-03-12] MEDS ORDERED: ISOVUE-370 76% 100ML VIAL As Ordered ONE (21:20)
[2022-03-12 22:10] LABS: HEMOGLOBIN A1c 5.2 %
[2022-03-12] MEDS ORDERED: PANTOPRAZOLE 40MG TAB (PROTONIX) PO ONE (22:30)
[2022-03-13 00:21] LABS: VENOUS BASE EXCESS 1.1 (-2.0-2.0); VENOUS HCO3 27.2 MEQ/L (23.0-27.0); VENOUS PARTIAL PRESSURE CO2 48.3 mmHg (38.0-50.0); VENOUS PARTIAL PRESSURE O2 40.9 mmHg (30.0-50.0); VENOUS PH 7.368 UNITS (7.330-7.430); VENOUS STANDARD HCO3 24.9 MEQ/L; VENOUS TOTAL CO2 28.7 MEQ/L (24.0-28.0)
[2022-03-13] MEDS ORDERED: OMEP-173 PO (00:45)
[2022-03-13] MEDS ORDERED: CARA1TAB6 PO (00:45)
[2022-03-13] MEDS ORDERED: PROM25TA12 PO (00:45)
== END 2022-03-13 01:33 | disposition home or self-care (01) ==
LOC: M ED 16:51
DX: R06.00 Dyspnea, unspecified (principal); R11.0 Nausea; R53.83 Other fatigue; G40.909 Epilepsy, unspecified, not intractable, without status epilepticus; B19.20 Unspecified viral hepatitis C without hepatic coma; I25.2 Old myocardial infarction; Z87.442 Personal history of urinary calculi; Z79.899 Other long term (current) drug therapy; Z79.3 Long term (current) use of hormonal contraceptives; Z88.8 Allergy status to other drugs, medicaments and biological substances; Z91.018 Allergy to other foods
CPT/HCPCS: 36415; 71046; 71275; 80048; 80076; 82550; 82553; 82803; 83036; 84436; 84443; 84484; 84703; 93005; 99284; Q9967

== ENCOUNTER 2022-06-08 12:39 | Emergency (ER) | payer OTHER, MEDICAID ==
[~2022-06-08] VITALS: Ht 160 cm; Wt 70.5 kg
[~2022-06-08 12:39] MED LIST changes: +CARA1TAB6 PO; +OMEP-173 PO; +PROM25TA12 PO
[2022-06-08 12:40] VITALS: BP 115/75
[2022-06-08] MEDS ORDERED: DEXTROAMP-AMPHETAMIN (12:49)
[2022-06-08] MEDS ORDERED: CLON0.5T2 PO (12:49)
[2022-06-08] MEDS ORDERED: SUCR1TAB56 (12:49)
[2022-06-08] MEDS ORDERED: ESTR2TAB3 PO (12:49)
[2022-06-08] MEDS ORDERED: OXCA300T14 (12:49)
[2022-06-08 16:16] LABS: RSV AMPLIFICATION NEGATIVE (NEGATIVE)
[2022-06-08 17:27] LABS: BASO % 0.1 % (0.0-1.0); EOS # 0.1 10^3/uL (0.0-0.5); EOS % 0.7 % (0.0-3.0); HEMOGLOBIN 14.2 g/dl (12.0-15.5); LYMPH # 2.1 10^3/uL (1.5-5.0); LYMPH % 30.3 % (24.0-44.0); MEAN CORPUSCULAR HEMOGLOBIN 29.8 pg (27.0-33.0); MEAN CORPUSCULAR VOLUME 90.3 fl (80.0-96.0); MONO # 0.4 10^3/uL (0.0-0.8); MONO % 5.6 % (2.0-8.0); NEUTROPHILS # 4.3 10^3/uL (1.5-8.5); PLATELET COUNT, AUTOMATED 258 10^3/uL (150-450); RED BLOOD COUNT 4.76 10^6/uL (4.00-5.40); WHITE BLOOD COUNT 6.8 10^3/uL (4.0-10.0)
[2022-06-08 18:12] LABS: INR 0.97; PROTHROMBIN TIME 13.1 SECONDS (12.5-14.5)
[2022-06-08 18:13] LABS: PARTIAL THROMBOPLASTIN TIME 29.3 SECONDS (24.8-34.2)
[2022-06-08 18:14] LABS: ALBUMIN 4.2 G/DL (3.2-5.2); BILIRUBIN,DIRECT 0.2 MG/DL (<0.4); BILIRUBIN,TOTAL 0.8 MG/DL (0.3-1.2); TOTAL PROTEIN 7.3 G/DL (5.7-8.2)
[2022-06-08 18:17] LABS: BLOOD UREA NITROGEN 8 MG/DL (9-23); CALCIUM LEVEL 9.5 MG/DL (8.5-10.1); CARBON DIOXIDE LEVEL 24 MMOL/L (20-31); CHLORIDE LEVEL 105 MMOL/L (98-107); CREATININE FOR GFR 0.81 MG/DL (0.55-1.30); FERRITIN 78.1 NG/ML (7.3-270.7); GLOMERULAR FILTRATION RATE > 60.0 (>58); GLUCOSE, FASTING 73 MG/DL (60-100); HCG, SERUM QUANTITATIVE 2.59999 MIU/ML (<4.2); IRON (FE) 94 UG/DL (50-170); PERCENT SATURATION 27.8 % (13.2-45.0); POTASSIUM SERUM 4.3 MMOL/L (3.5-5.1); SODIUM LEVEL 141 MMOL/L (136-145); TOTAL IRON BINDING CAPACITY 338 UG/DL (250-425); VITAMIN B12 LEVEL > 2000 PG/ML (211-911)
[2022-06-08 18:38] LABS: FOLATE > 24.00 NG/ML (>5.4)
[2022-06-08] MEDS ORDERED: OMEP40CA4 PO (19:44)
[2022-06-08] MEDS ORDERED: CARA1TAB6 PO (19:44)
[2022-07-20] MEDS ORDERED: VITA-10 PO (13:20)
[2022-07-20] MEDS ORDERED: VITACAP37 PO (13:20)
[2022-07-20] MEDS ORDERED: pancreatic enzymes PO (13:20)
[2022-07-20] MEDS ORDERED: A-10CAP2 PO (13:20)
[2022-07-20] MEDS ORDERED: CURC500C PO (13:20)
[2022-07-20] MEDS ORDERED: IRON65TA2 PO (13:20)
[2022-07-20] MEDS ORDERED: CYAN500T14 PO (13:20)
[2022-07-20] MEDS ORDERED: GINK125C PO (13:20)
[2022-07-20] MEDS ORDERED: VITA100093 PO (13:20)
[2022-07-20] MEDS ORDERED: CALC600T60 PO (13:20)
[2022-07-20] MEDS ORDERED: K 10100T PO (13:20)
[2022-07-20] MEDS ORDERED: NIAC500T93 PO (13:20)
[2022-07-20] MEDS ORDERED: ADDE10CA3 PO (13:20)
[2022-07-20] MEDS ORDERED: CVS-161 PO (13:20)
[2022-07-20] MEDS ORDERED: [UNRECOGNIZED DRUG - OTHER] PO (13:20)
[2022-07-20] MEDS ORDERED: ZINC50TA4 PO (13:20)
== END 2022-06-08 20:22 | disposition home or self-care (01) ==
LOC: M ED 12:39
DX: R10.33 Periumbilical pain (principal); R43.2 Parageusia; R11.0 Nausea; J02.9 Acute pharyngitis, unspecified; E11.9 Type 2 diabetes mellitus without complications; I25.2 Old myocardial infarction; G43.909 Migraine, unspecified, not intractable, without status migrainosus; E03.9 Hypothyroidism, unspecified; Z87.442 Personal history of urinary calculi; M54.9 Dorsalgia, unspecified; B19.20 Unspecified viral hepatitis C without hepatic coma; F31.9 Bipolar disorder, unspecified; F41.9 Anxiety disorder, unspecified; F20.9 Schizophrenia, unspecified; Z88.6 Allergy status to analgesic agent; Z88.5 Allergy status to narcotic agent; Z91.018 Allergy to other foods; Z90.49 Acquired absence of other specified parts of digestive tract; Z79.899 Other long term (current) drug therapy

== ENCOUNTER → 2022-06-26 | Outpatient (REF) | payer OTHER, MEDICAID ==
[~2022-06-26] MED LIST changes: +A-10CAP2 PO; +ADDE10CA3 PO; -BENZ-52 PO; +BENZ1TAB5 PO; +CALC600T60 PO; +CLON0.5T2 PO; +CURC500C PO; +CVS-161 PO; +CYAN500T14 PO; +DEXTROAMP-AMPHETAMIN; +ESTR2TAB3 PO; +GINK125C PO; +IRON65TA2 PO; +K 10100T PO; +NIAC500T93 PO; +OMEP40CA4 PO; +OXCA300T14; +SUCR1TAB56; +VITA-10 PO; +VITA100093 PO; +VITACAP37 PO; +ZINC50TA4 PO; +[UNRECOGNIZED DRUG - OTHER] PO; +pancreatic enzymes PO
[2022-06-29 17:10] LABS: CALPROTECTIN STOOL <16 ug/g (0-120); H PYLORI STOOL ANTIGEN Negative (Negative); PANCREATIC ELASTASE STOOL 161 (>200)
== END ==
LOC: M LAB REF 11:52
PROVIDERS: ATTEND Nurse Practitioner Family
DX: R19.4 Change in bowel habit (principal); R10.9 Unspecified abdominal pain; R12 Heartburn

== ENCOUNTER → 2022-07-26 | Outpatient (CLI) | payer OTHER, MEDICAID ==
[~2022-07-26] MED LIST changes: +BENZ-52 PO; -BENZ1TAB5 PO
== END ==
LOC: M LABSMTC 09:44
PROVIDERS: ATTEND Anesthesiology
DX: Z01.818 Encounter for other preprocedural examination (principal); Z11.52 Encounter for screening for COVID-19

== ENCOUNTER 2022-07-31 10:54 | Day surgery (SDC) | payer OTHER, MEDICAID ==
[~2022-07-31] VITALS: Ht 160 cm; Wt 65.7 kg
[~2022-07-31 10:54] MED LIST changes: -BENZ-52 PO; +BENZ1TAB5 PO; +NS 1,000 ML IV ONE
[2022-07-31] MEDS ORDERED: LIDOCAINE 2% 100MG/5ML SDV (FOR ANES.) As Ordered ONE (12:43)
[2022-07-31] MEDS ORDERED: propofoL 200 MG/20 ML VIAL As Ordered ONE ×2 (12:43→12:59)
[2022-07-31] MEDS ORDERED: MIDAZOLAM INJ 2MG/2ML VIAL As Ordered ONE (12:44)
[2022-07-31 13:47] VITALS: BP 104/73
[2022-07-31] MEDS ORDERED: ISOVUE-370 76% 100ML VIAL As Ordered ONE (17:26)
== END 2022-07-31 13:57 | disposition home or self-care (01) ==
LOC: M OPP 10:54
PROVIDERS: ATTEND Internal Medicine Gastroenterology
DX: K64.4 Residual hemorrhoidal skin tags (principal); K64.8 Other hemorrhoids; K25.9 Gastric ulcer, unspecified as acute or chronic, without hemorrhage or perforation; Z79.890 Hormone replacement therapy; Z79.899 Other long term (current) drug therapy; Z88.5 Allergy status to narcotic agent; Z88.6 Allergy status to analgesic agent; Z91.018 Allergy to other foods; I25.2 Old myocardial infarction; Z86.19 Personal history of other infectious and parasitic diseases; Z86.59 Personal history of other mental and behavioral disorders; G43.909 Migraine, unspecified, not intractable, without status migrainosus; F20.9 Schizophrenia, unspecified; Z80.0 Family history of malignant neoplasm of digestive organs; Z80.41 Family history of malignant neoplasm of ovary; K29.70 Gastritis, unspecified, without bleeding
CPT/HCPCS: 43239; 45380; 88305; J2250

== ENCOUNTER 2022-08-16 12:22 | Emergency (ER) | payer MEDICAID, OTHER ==
[~2022-08-16] VITALS: Ht 160 cm; Wt 66.4 kg
[~2022-08-16 12:22] MED LIST changes: -NS 1,000 ML IV ONE
[2022-08-16 15:25] VITALS: BP 126/86
== END 2022-08-16 15:26 | disposition home or self-care (01) ==
LOC: M ED 12:22
DX: S46.002A Unspecified injury of muscle(s) and tendon(s) of the rotator cuff of left shoulder, initial encounter (principal); Y92.410 Unspecified street and highway as the place of occurrence of the external cause; G43.909 Migraine, unspecified, not intractable, without status migrainosus; Z88.5 Allergy status to narcotic agent; Z88.6 Allergy status to analgesic agent; Z91.018 Allergy to other foods; Z79.899 Other long term (current) drug therapy

== ENCOUNTER → 2022-09-27 | Outpatient (CLI) | payer OTHER, MEDICAID | LOC: M PLAIMG 14:13 | PROVIDERS: ATTEND Orthopaedic Surgery | DX: M25.512 Pain in left shoulder (principal) ==

== ENCOUNTER → 2022-09-27 | Outpatient (CLI) | payer OTHER, MEDICAID ==
[~2022-09-27] MED LIST changes: +PROHANCE 279.3MG/ML 15ML VIAL ONE
== END ==
LOC: M PLAIMG 14:12
PROVIDERS: ATTEND Nurse Practitioner Family
DX: K86.81 Exocrine pancreatic insufficiency (principal); R10.9 Unspecified abdominal pain; R19.4 Change in bowel habit

== ENCOUNTER → 2022-12-06 | Outpatient (CLI) | payer OTHER, MEDICAID ==
[~2022-12-06] MED LIST changes: -PROHANCE 279.3MG/ML 15ML VIAL ONE
== END ==
LOC: M LAB 07:48
PROVIDERS: ATTEND Nurse Practitioner Family
DX: K86.81 Exocrine pancreatic insufficiency (principal)

== ENCOUNTER 2023-01-08 10:13 | Inpatient (IN) | payer OTHER, MEDICAID ==
[~2023-01-08] VITALS: Ht 160 cm; Wt 70.0 kg
[2023-01-08 11:05] LABS: HEMATOCRIT 39.5 % (36.0-47.0); HEMOGLOBIN 13.4 g/dl (12.0-15.5); MEAN CORPUSCULAR HEMOGLOBIN 29.9 pg (27.0-33.0); MEAN CORPUSCULAR HGB CONC 33.9 g/dl (32.0-36.5); MEAN CORPUSCULAR VOLUME 88.2 fl (80.0-96.0); PLATELET COUNT, AUTOMATED 191 10^3/uL (150-450); RED BLOOD COUNT 4.48 10^6/uL (4.00-5.40); WHITE BLOOD COUNT 5.1 10^3/uL (4.0-10.0)
[2023-01-08 11:33] LABS: PHENCYCLIDINE URINE NEGATIVE (NEGATIVE)
[2023-01-08 11:34] LABS: AMPHETAMINES LEVEL URINE NEGATIVE (NEGATIVE); BARBITURATES URINE NEGATIVE (NEGATIVE); BENZODIAZEPINES URINE NEGATIVE (NEGATIVE); COCAINE METABOLITE URINE NEGATIVE (NEGATIVE); METHADONE URINE NEGATIVE (NEGATIVE); OPIATES URINE NEGATIVE (NEGATIVE)
[2023-01-08 11:35] LABS: CANNABINOIDS URINE NEGATIVE (NEGATIVE)
[2023-01-08 11:36] LABS: ETHYL ALCOHOL (ETHANOL) 0.005 % (0.000-0.010); HCG, SERUM QUALITATIVE NEGATIVE (NEGATIVE)
[2023-01-08 11:38] LABS: ACETAMINOPHEN LEVEL < 2.0 UG/ML (10.0-20.0); ALBUMIN 3.5 G/DL (3.2-5.2); ALKALINE PHOSPHATASE 84 U/L (46-116); ALT/SGPT 37 U/L (7.0-40); AST/SGOT 14 U/L (<34); BILIRUBIN,DIRECT < 0.1 MG/DL (<0.4); BILIRUBIN,TOTAL 0.4 MG/DL (0.3-1.2); BLOOD UREA NITROGEN 12 MG/DL (9-23); CALCIUM LEVEL 8.9 MG/DL (8.5-10.1); CARBON DIOXIDE LEVEL 23 MMOL/L (20-31); CHLORIDE LEVEL 108 MMOL/L (98-107); CREATININE FOR GFR 0.86 MG/DL (0.55-1.30); GLOMERULAR FILTRATION RATE > 60.0 (>58); GLUCOSE, FASTING 94 MG/DL (60-100); POTASSIUM SERUM 4.1 MMOL/L (3.5-5.1); SALICYLATE LEVEL < 3.0 MG/DL (<30); SODIUM LEVEL 138 MMOL/L (136-145); TOTAL PROTEIN 6.1 G/DL (5.7-8.2)
[2023-01-08 11:39] LABS: THYROID STIMULATING HORMONE 2.961 uIU/ML (0.55-4.78)
[2023-01-08] MEDS ORDERED: MED REC IN PROGRESS XX SCH (12:00)
[2023-01-08] MEDS ORDERED: BIOT1CAP8 PO (14:05)
[2023-01-08] MEDS ORDERED: MULTIVITAMIN PO (14:05)
[2023-01-08] MEDS ORDERED: LORA2TAB14 PO (14:05)
[2023-01-08] MEDS ORDERED: [UNRECOGNIZED DRUG - CODE] SL (14:14)
[2023-01-08] MEDS ORDERED: SUCR1ORA2 PO (14:14)
[2023-01-08] MEDS ORDERED: VITA1CAP21 PO (14:35)
[2023-01-08] MEDS ORDERED: [UNRECOGNIZED DRUG - OTHER] (14:37)
[2023-01-08] MEDS ORDERED: [UNRECOGNIZED DRUG - REMARK] SUBQ (14:37)
[2023-01-08] MEDS ORDERED: HOME MED LIST COMPLETE! XX SCH (14:50)
[2023-01-08] MEDS ORDERED: LORazepam 2 MG TAB PO PRN (17:10)
[2023-01-08] MEDS ORDERED: traZODone 50 MG TAB PO PRN (18:15)
[2023-01-08] MEDS ORDERED: ACETAMINOPHEN TAB 650MG DOSE (2X325MG) PO PRN (18:15)
[2023-01-08] MEDS ORDERED: MAALOX 30 ML SUSP *UDC PO PRN (18:15)
[2023-01-08] MEDS ORDERED: MOM 30ML SUSPENSION UDC PO PRN (18:15)
[2023-01-08] MEDS ORDERED: OLANZapine ORAL DISINTEGRATING TAB 5MG PO PRN (18:15)
[2023-01-08] MEDS ORDERED: NICOTINE 21MG/24HR 1 EA TRANSDERMAL TD PRN (18:15)
[2023-01-08 20:55] VITALS: BP 123/80; TEMP 97.9; O2SAT 98
[2023-01-09 06:31] VITALS: BP 115/66; TEMP 97.9; O2SAT 100
[2023-01-09 18:25] VITALS: BP 94/58; TEMP 98.1
[2023-01-09] MEDS: OLANZapine 5 MG TAB PO SCH (20:16)
[2023-01-10 06:38] VITALS: BP_SYST 106; BP_SYST 122; BP_DIAS 52; BP_DIAS 67; TEMP 96.6; TEMP 96.9; O2SAT 97; O2SAT 99
[2023-01-10 18:55] VITALS: BP 118/73; TEMP 97.8
[2023-01-10] MEDS: OLANZapine 5 MG TAB PO SCH (20:17)
[2023-01-11 06:26] VITALS: BP 103/54; TEMP 97.8; O2SAT 98
[2023-01-11 18:52] VITALS: BP 114/64; TEMP 98.1
[2023-01-11] MEDS: OLANZapine 5 MG TAB PO SCH (20:44)
[2023-01-12 06:10] VITALS: BP 117/68; TEMP 97.2; O2SAT 97
[2023-01-12] MEDS: PILL CUTTER 1 EACH XX PRN (11:22)
[2023-01-12] MEDS: BENZTROPINE 0.5 MG TAB PO SCH ×2 (11:22→21:51)
[2023-01-12] MEDS: diphenhydrAMINE 25MG CAP PO PRN (14:38)
[2023-01-12 18:00] VITALS: BP 116/66; TEMP 98.4; O2SAT 100
[2023-01-12] MEDS: OLANZapine 5 MG TAB PO SCH (21:12)
[2023-01-13 06:18] VITALS: BP 127/66; TEMP 96.8; O2SAT 97
[2023-01-13] MEDS: BENZTROPINE 0.5 MG TAB PO SCH ×2 (09:10→20:04)
[2023-01-13 18:20] VITALS: BP 117/77; TEMP 97.2
[2023-01-13] MEDS: diphenhydrAMINE 25MG CAP PO PRN (18:33)
[2023-01-13] MEDS: PILL CUTTER 1 EACH XX PRN (20:04)
[2023-01-13] MEDS: OLANZapine 5 MG TAB PO SCH (20:04)
[2023-01-14 06:06] VITALS: BP 108/64; TEMP 97.3; O2SAT 100
[2023-01-14] MEDS: BENZTROPINE 0.5 MG TAB PO SCH (09:59)
[2023-01-14] MEDS: PILL CUTTER 1 EACH XX PRN (09:59)
[2023-01-14] MEDS ORDERED: OLAN1TAB16 PO (10:02)
[2023-01-14] MEDS ORDERED: NICO21PAT TD (10:02)
[2023-01-14] MEDS ORDERED: BENZ0.5T2 PO (10:02)
== END 2023-01-14 11:52 | disposition home or self-care (01) | DRG 885 ==
LOC: M ED 10:13 → M ED INP 18:15 → M PSY 20:26
PROVIDERS: ADMIT Student in an Organized Health Care Education/Training Program; ATTEND Student in an Organized Health Care Education/Training Program
DX: F31.9 Bipolar disorder, unspecified (principal); F19.151 Other psychoactive substance abuse with psychoactive substance-induced psychotic disorder with hallucinations; F25.0 Schizoaffective disorder, bipolar type; F17.290 Nicotine dependence, other tobacco product, uncomplicated; G43.909 Migraine, unspecified, not intractable, without status migrainosus; Z88.5 Allergy status to narcotic agent; Z88.6 Allergy status to analgesic agent; Z91.018 Allergy to other foods; Z79.899 Other long term (current) drug therapy

== ENCOUNTER → 2023-10-24 | Outpatient (CLI) | payer MEDICARE, OTHER, MEDICAID ==
[~2023-10-24] MED LIST changes: +BENZ0.5T2 PO; +BIOT1CAP8 PO; +LORA2TAB14 PO; +MULTIVITAMIN PO; +OLAN1TAB16 PO; +RISP-106 PO; -RISP-9 PO; +SUCR1ORA2 PO; +VITA1CAP21 PO; +[UNRECOGNIZED DRUG - CODE] SL; +[UNRECOGNIZED DRUG - OTHER]; +[UNRECOGNIZED DRUG - REMARK] SUBQ
== END ==
LOC: M SOG 14:17
PROVIDERS: ATTEND Orthopaedic Surgery
DX: M25.562 Pain in left knee (principal)

== ENCOUNTER → 2023-10-31 | Outpatient (CLI) | payer OTHER, MEDICAID, MEDICARE | LOC: M SOG 13:00 | PROVIDERS: ATTEND Physician Assistant | DX: M25.522 Pain in left elbow (principal) ==

== ENCOUNTER → 2023-11-25 | Outpatient (CLI) | payer MEDICARE, OTHER | LOC: M LAB 10:09 | PROVIDERS: ATTEND Nurse Practitioner Family | DX: K86.81 Exocrine pancreatic insufficiency (principal) ==

== ENCOUNTER → 2023-12-11 | Outpatient (CLI) | payer MEDICARE, OTHER ==
[2023-12-11 16:49] LABS: THYROID STIMULATING HORMONE 1.808 uIU/ML (0.55-4.78)
[2023-12-11 16:50] LABS: VITAMIN B12 LEVEL 1935 PG/ML (211-911)
[2023-12-11 16:51] LABS: FOLATE > 24.0 NG/ML (>5.4)
== END ==
LOC: M LAB 15:36
PROVIDERS: ATTEND Psychiatry & Neurology Neurology
DX: R41.89 Other symptoms and signs involving cognitive functions and awareness (principal); E07.9 Disorder of thyroid, unspecified

== ENCOUNTER → 2024-04-02 | Outpatient (CLI) | payer MEDICARE, OTHER | LOC: M WHC 11:36 | PROVIDERS: ATTEND Obstetrics & Gynecology | DX: Z12.31 Encounter for screening mammogram for malignant neoplasm of breast (principal) ==

== ENCOUNTER 2024-10-06 11:44 | Inpatient (IN) | payer MEDICARE, OTHER ==
[~2024-10-06] VITALS: Ht 160 cm; Wt 69.6 kg
[2024-10-06 12:32] LABS: HEMOGLOBIN 15.7 g/dl (12.0-15.5); MEAN CORPUSCULAR HEMOGLOBIN 30.7 pg (27.0-33.0); MEAN CORPUSCULAR HGB CONC 33.4 g/dl (32.0-36.5); MEAN CORPUSCULAR VOLUME 91.8 fl (80.0-96.0); PLATELET COUNT, AUTOMATED 216 10^3/uL (150-450); RED BLOOD COUNT 5.12 10^6/uL (4.00-5.40); WHITE BLOOD COUNT 6.8 10^3/uL (4.0-10.0)
[2024-10-06 12:50] LABS: ETHYL ALCOHOL (ETHANOL) < 0.003 % (0.000-0.010)
[2024-10-06 12:52] LABS: ALBUMIN 4.5 G/DL (3.2-5.2); ALKALINE PHOSPHATASE 92 U/L (35-104); ALT/SGPT 27 U/L (7.0-40); AST/SGOT 18 U/L (<34); BILIRUBIN,DIRECT 0.1 MG/DL (<0.4); BILIRUBIN,TOTAL 0.6 MG/DL (0.3-1.2); BLOOD UREA NITROGEN 28 MG/DL (9-23); CALCIUM LEVEL 10.1 MG/DL (8.5-10.1); CARBON DIOXIDE LEVEL 30 MMOL/L (20-31); CHLORIDE LEVEL 104 MMOL/L (98-107); CREATININE FOR GFR 0.96 MG/DL (0.55-1.30); GLOMERULAR FILTRATION RATE > 60.0 (>58); GLUCOSE, FASTING 78 MG/DL (60-100); POTASSIUM SERUM 4.2 MMOL/L (3.5-5.1); SALICYLATE LEVEL < 3.0 MG/DL (<30); SODIUM LEVEL 141 MMOL/L (136-145)
[2024-10-06 12:54] LABS: THYROID STIMULATING HORMONE 2.046 uIU/ML (0.55-4.78)
[2024-10-06 12:57] LABS: HCG, SERUM QUALITATIVE NEGATIVE (NEGATIVE)
[2024-10-06 13:01] LABS: AMPHETAMINES LEVEL URINE NEGATIVE (NEGATIVE); BARBITURATES URINE NEGATIVE (NEGATIVE); BENZODIAZEPINES URINE NEGATIVE (NEGATIVE); CANNABINOIDS URINE NEGATIVE (NEGATIVE); COCAINE METABOLITE URINE NEGATIVE (NEGATIVE); METHADONE URINE NEGATIVE (NEGATIVE); OPIATES URINE NEGATIVE (NEGATIVE); PHENCYCLIDINE URINE NEGATIVE (NEGATIVE)
[2024-10-06] MEDS ORDERED: PANT20TA6 PO (16:17)
[2024-10-06] MEDS ORDERED: HYDR-3363 PO (16:17)
[2024-10-06] MEDS ORDERED: ADDE1TAB14 PO (16:19)
[2024-10-06] MEDS ORDERED: HOME MED LIST COMPLETE! XX SCH (16:20)
[2024-10-06] MEDS ORDERED: LUMA21CA PO (16:20)
[2024-10-06 16:35] VITALS: BP 137/90; TEMP 96.8; O2SAT 100
[2024-10-06] MEDS ORDERED: MAALOX 30 ML SUSP *UDC PO PRN (18:25)
[2024-10-06] MEDS ORDERED: MOM 30ML SUSPENSION UDC PO PRN (18:25)
[2024-10-06] MEDS ORDERED: traZODone 50 MG TAB PO PRN (18:25)
[2024-10-06] MEDS: diphenhydrAMINE 25MG CAP PO PRN (22:15)
[2024-10-07 06:30] VITALS: BP 99/52; TEMP 98.1; O2SAT 98
[2024-10-07] MEDS: ADDERALL 5 MG TAB PO SCH (11:31)
[2024-10-07 15:02] VITALS: BP 130/74; TEMP 97.5; O2SAT 98
[2024-10-07] MEDS: PANTOPRAZOLE 20 MG TAB PO SCH (20:25)
[2024-10-08 06:25] VITALS: BP 103/60; TEMP 97.9; O2SAT 98
[2024-10-08] MEDS: ATOMOXETINE HCL 10MG CAPSULE (STRATTERA) PO SCH (13:30)
[2024-10-08 14:50] VITALS: BP 119/78; TEMP 98.2; O2SAT 100
[2024-10-09 06:30] VITALS: BP 93/55; TEMP 96.9; O2SAT 96
[2024-10-09] MEDS ORDERED: OLANZapine ORAL DISINTEGRATING TAB 5MG PO PRN (08:50)
[2024-10-10 06:18] VITALS: BP 110/64; TEMP 97.6; O2SAT 99
[2024-10-10] MEDS: SUCRALFATE SUSP 1GM/10ML UD PO PRN (11:17)
[2024-10-10 15:49] VITALS: BP 135/88; TEMP 97.9; O2SAT 100
[2024-10-10] MEDS: LORazepam 0.5 MG TAB PO ONE (22:00)
[2024-10-11 06:20] VITALS: BP 142/81; TEMP 98.3; O2SAT 96
[2024-10-11] MEDS: ACETAMINOPHEN 325 MG TAB PO PRN (11:07)
[2024-10-11 14:44] VITALS: BP 121/85; TEMP 97.8; O2SAT 100
[2024-10-12 06:26] VITALS: BP 98/61; TEMP 97.2; O2SAT 94
[2024-10-12] MEDS ORDERED: HYDR-3363 PO (12:12)
[2024-10-12] MEDS ORDERED: CHLOR25TA PO (12:12)
[2024-10-12] MEDS ORDERED: ATOM10CA6 PO (12:12)
== END 2024-10-12 13:00 | disposition home or self-care (01) | DRG 885 ==
LOC: M ED 11:44 → M ED INP 14:34 → M PSY 16:29
PROVIDERS: ADMIT Psychiatry & Neurology Psychiatry; ATTEND Internal Medicine
DX: F25.0 Schizoaffective disorder, bipolar type (principal); F90.9 Attention-deficit hyperactivity disorder, unspecified type; F43.10 Post-traumatic stress disorder, unspecified; Z81.3 Family history of other psychoactive substance abuse and dependence; Z81.8 Family history of other mental and behavioral disorders; Z79.899 Other long term (current) drug therapy; Z88.6 Allergy status to analgesic agent; Z88.5 Allergy status to narcotic agent; Z91.018 Allergy to other foods

== ENCOUNTER 2024-10-26 09:27 | Inpatient (IN) | payer MEDICARE, OTHER ==
[~2024-10-26] VITALS: Ht 160 cm; Wt 71.9 kg
[~2024-10-26 09:27] MED LIST changes: +ADDE1TAB14 PO; +ATOM10CA6 PO; +CHLOR25TA PO; +HYDR-3363 PO; +LUMA21CA PO; +PANT20TA6 PO
[2024-10-26] MEDS ORDERED: ISOVUE-370 76% 100ML VIAL As Ordered ONE (11:46)
[2024-10-26 11:55] LABS: VENOUS BASE EXCESS -0.3 (-2.0-2.0); VENOUS HCO3 26.3 MMOL/L (23.0-27.0); VENOUS O2 SATURATION 96.3 % (60.0-80.0); VENOUS PARTIAL PRESSURE CO2 49.6 mmHg (38.0-50.0); VENOUS PARTIAL PRESSURE O2 90.8 mmHg (30.0-50.0); VENOUS PH 7.343 UNITS (7.330-7.430); VENOUS STANDARD HCO3 24.2 MMOL/L; VENOUS TOTAL CO2 27.9 MMOL/L (24.0-28.0)
[2024-10-26 12:02] LABS: BASO % 0.2 % (0.0-1.0); EOS % 0.2 % (0.0-3.0); HEMATOCRIT 50.9 % (36.0-47.0); HEMOGLOBIN 17.3 g/dl (12.0-15.5); LYMPH # 0.9 10^3/uL (1.5-5.0); MEAN CORPUSCULAR HEMOGLOBIN 30.7 pg (27.0-33.0); MEAN CORPUSCULAR VOLUME 90.4 fl (80.0-96.0); MONO # 1.6 10^3/uL (0.0-0.8); MONO % 7.2 % (2.0-8.0); NEUTROPHILS # 19.9 10^3/uL (1.5-8.5); NEUTROPHILS % 87.9 % (36.0-66.0); PLATELET COUNT, AUTOMATED 232 10^3/uL (150-450); RED BLOOD COUNT 5.63 10^6/uL (4.00-5.40); WHITE BLOOD COUNT 22.6 10^3/uL (4.0-10.0)
[2024-10-26] MEDS: NS (Normal Saline) 0.9% 1,000 ML IV ONE (12:24)
[2024-10-26 12:29] LABS: ETHYL ALCOHOL (ETHANOL) < 0.003 % (0.000-0.010)
[2024-10-26 12:31] LABS: SALICYLATE LEVEL < 3.0 MG/DL (<30)
[2024-10-26 12:33] LABS: OSMOLALITY SERUM 311 MOSM/KG (275-295); THYROID STIMULATING HORMONE 13.568 uIU/ML (0.55-4.78)
[2024-10-26 13:11] LABS: ALBUMIN 4.1 G/DL (3.2-5.2); ALKALINE PHOSPHATASE 147 U/L (35-104); ALT/SGPT 598 U/L (7.0-40); AST/SGOT 2574 U/L (<34); BILIRUBIN,DIRECT 0.2 MG/DL (<0.4); BILIRUBIN,TOTAL 0.8 MG/DL (0.3-1.2); BLOOD UREA NITROGEN 49 MG/DL (9-23); CALCIUM LEVEL 8.7 MG/DL (8.5-10.1); CARBON DIOXIDE LEVEL 29 MMOL/L (20-31); CHLORIDE LEVEL 96 MMOL/L (98-107); CREATININE FOR GFR 2.26 MG/DL (0.55-1.30); GLUCOSE, FASTING 145 MG/DL (60-100); POTASSIUM SERUM 6.4 MMOL/L (3.5-5.1); SODIUM LEVEL 134 MMOL/L (136-145); TOTAL PROTEIN 7.8 G/DL (5.7-8.2)
[2024-10-26 13:15] LABS: CPK CREATINE PHOSPHOKINASE 70004 U/L (34-145)
[2024-10-26] MEDS ORDERED: NS (Normal Saline) 0.9% 1,000 ML IV SCH (13:40)
[2024-10-26] MEDS: LIDOCAINE 2% 5ML JELLY UROJET TOP ONE (13:40)
[2024-10-26] MEDS: HumuLIN R (REGULAR) INSULIN (NovoLIN R) **100U/ML** PER UNIT IV ONE (13:43)
[2024-10-26] MEDS: PATIROMER SORBITEX CALCIUM 8.4 GM POWDER PACKET (VELTASSA) PO ONE (13:43)
[2024-10-26] MEDS: CALCIUM CHLORIDE 10% 1 GM/10 ML SYR IV ONE (13:43)
[2024-10-26] MEDS: DEXTROSE 50% 50ML SYRINGE IV ONE (13:43)
[2024-10-26] MEDS: SODIUM BICARBONATE 8.4% INJ 50ML SYRINGE IV ONE (13:43)
[2024-10-26] MEDS: NS (Normal Saline) 0.9% 1,000 ML IV SCH (13:44)
[2024-10-26] MEDS: cefTRIAXone SOD 2 GM in DEXTROSE 5% (D5W) ADV/MINI-BAG 50 ML IV ONE (13:44)
[2024-10-26 14:26] LABS: INR 0.98; PROTHROMBIN TIME 13.3 SECONDS (12.5-14.5)
[2024-10-26 14:32] LABS: URIC ACID 5.9 MG/DL (3.1-7.8)
[2024-10-26 14:33] LABS: MAGNESIUM LEVEL 4.4 MG/DL (1.8-2.4)
[2024-10-26] MEDS ORDERED: LUMA42CA PO (14:34)
[2024-10-26] MEDS ORDERED: CHLO25TA88 PO (14:34)
[2024-10-26] MEDS ORDERED: ATOM10CA PO (14:34)
[2024-10-26 14:35] LABS: C REACTIVE PROTEIN QUANTITATIV 9.41 MG/DL (<1.0)
[2024-10-26] MEDS ORDERED: HOME MED LIST COMPLETE! XX SCH (14:35)
[2024-10-26 14:40] LABS: PROCALCITONIN 0.34 ng/ml
[2024-10-26 14:44] LABS: HEPATITIS B SURFACE ANTIGEN NEGATIVE (NEGATIVE)
[2024-10-26 15:36] LABS: HEPATITIS B CORE ANTIBODY IGM NEGATIVE (NEGATIVE)
[2024-10-26 15:44] LABS: MYOGLOBIN > 20000 NG/ML (<110)
[2024-10-26 15:54] LABS: AMPHETAMINES LEVEL URINE NEGATIVE (NEGATIVE); BARBITURATES URINE NEGATIVE (NEGATIVE); BENZODIAZEPINES URINE NEGATIVE (NEGATIVE); CANNABINOIDS URINE NEGATIVE (NEGATIVE); COCAINE METABOLITE URINE NEGATIVE (NEGATIVE); METHADONE URINE NEGATIVE (NEGATIVE); OPIATES URINE NEGATIVE (NEGATIVE); PHENCYCLIDINE URINE NEGATIVE (NEGATIVE)
[2024-10-26 16:52] LABS: KETONE, URINE AUTO RFX NEGATIVE (NEGATIVE); LEUKOCYTE ESTERASE UR AUTO RFX NEGATIVE (NEGATIVE); MUCUS, URINE RFX SMALL (NEGATIVE); NITRITE, URINE AUTO RFX NEGATIVE (NEGATIVE); RBC, URINE AUTO RFX 0 /HPF (0-3); SQUAM EPITHELIAL CELL UR AURFX 1 /HPF (0-6); WBC, URINE AUTO RFX 5 /HPF (0-3)
[2024-10-26 16:59] LABS: CREATININE,RANDOM URINE 122.3 MG/DL
[2024-10-26 17:09] LABS: TOTAL PROTEIN,RANDOM URINE 168.2 MG/DL (0.0-14.0)
[2024-10-26] MEDS: dexAMETHasone 20MG/5ML VIAL IV ONE (17:22)
[2024-10-26 18:30] VITALS: BP 137/85; TEMP 98.6; O2SAT 97
[2024-10-26 18:54] LABS: CALCIUM LEVEL 8.4 MG/DL (8.5-10.1); CREATININE FOR GFR 2.3 MG/DL (0.55-1.30); GLOMERULAR FILTRATION RATE 26.4 (>58); POTASSIUM SERUM 4.5 MMOL/L (3.5-5.1)
[2024-10-26 19:40] VITALS: BP 150/91; TEMP 98.6; O2SAT 96
[2024-10-26] MEDS: HYDROMORPHONE HCL 0.5 MG/ 0.5 ML SYRINGE IV PRN (21:01)
[2024-10-26 22:00] VITALS: O2SAT 94
[2024-10-26 22:54] LABS: BILIRUBIN,DIRECT 0.1 MG/DL (<0.4); BILIRUBIN,TOTAL 0.4 MG/DL (0.3-1.2); TOTAL PROTEIN 5.7 G/DL (5.7-8.2)
[2024-10-26 23:00] VITALS: O2SAT 93
[2024-10-26] MEDS: THIAMINE 200MG 2ML VIAL IV SCH (23:20)
[2024-10-27] VITALS (30 sets, daily range): BP systolic 118–150; BP diastolic 70–85; TEMP 97.9–99; O2SAT 91–97
[2024-10-27 06:10] LABS: HEMATOCRIT 38.1 % (36.0-47.0); MEAN CORPUSCULAR HEMOGLOBIN 30.7 pg (27.0-33.0); MEAN CORPUSCULAR HGB CONC 34.1 g/dl (32.0-36.5); MEAN CORPUSCULAR VOLUME 89.9 fl (80.0-96.0); PLATELET COUNT, AUTOMATED 191 10^3/uL (150-450); RED BLOOD COUNT 4.24 10^6/uL (4.00-5.40); WHITE BLOOD COUNT 17.9 10^3/uL (4.0-10.0)
[2024-10-27 06:12] LABS: CALCIUM LEVEL 8.2 MG/DL (8.5-10.1); CREATININE FOR GFR 2.7 MG/DL (0.55-1.30); GLOMERULAR FILTRATION RATE 21.8 (>58); POTASSIUM SERUM 5.4 MMOL/L (3.5-5.1)
[2024-10-27] MEDS: dexAMETHasone 20MG/5ML VIAL IV SCH (10:41)
[2024-10-27] MEDS: PATIROMER SORBITEX CALCIUM 8.4 GM POWDER PACKET (VELTASSA) PO ONE (10:41)
[2024-10-27] MEDS: MORPHINE 2 MG/ML 1ML VIAL IV PRN (10:42)
[2024-10-27] MEDS: NS (Normal Saline) 0.9% 1,000 ML IV SCH (13:30)
[2024-10-27] MEDS ORDERED: MOM 30ML SUSPENSION UDC PO PRN (17:15)
[2024-10-27] MEDS ORDERED: SUCRALFATE SUSP 1GM/10ML UD PO PRN (17:40)
[2024-10-27 18:12] LABS: CALCIUM LEVEL 8.3 MG/DL (8.5-10.1); CREATININE FOR GFR 2.44 MG/DL (0.55-1.30); GLOMERULAR FILTRATION RATE 24.6 (>58); POTASSIUM SERUM 4.8 MMOL/L (3.5-5.1)
[2024-10-27] MEDS ORDERED: GLUCAGON INJ 1MG VIAL SC PRN (19:20)
[2024-10-27] MEDS ORDERED: GLUCOSE 4 GM CHEW PO PRN (19:20)
[2024-10-27] MEDS ORDERED: DEXTROSE 50% 50ML SYRINGE IV PRN (19:20)
[2024-10-27] MEDS: PANTOPRAZOLE 20 MG TAB PO SCH (20:45)
[2024-10-27] MEDS: SENNA 8.6 MG TAB (SENOKOT) PO SCH (20:46)
[2024-10-27] MEDS: DOCUSATE SODIUM 100MG CAPSULE PO SCH (20:46)
[2024-10-27] MEDS: HEPARIN SOD (PORCINE) 5000UNITS/ML 1ML VIAL/SYRINGE SQ SCH (20:46)
[2024-10-27] MEDS: INSULIN LISPRO (NovoLOG) PER UNIT SC SCH (20:47)
[2024-10-27 23:42] LABS: CALCIUM LEVEL 9.1 MG/DL (8.5-10.1); CREATININE FOR GFR 2.35 MG/DL (0.55-1.30); GLOMERULAR FILTRATION RATE 25.7 (>58); POTASSIUM SERUM 4.6 MMOL/L (3.5-5.1)
[2024-10-28] VITALS (25 sets, daily range): BP systolic 151–165; BP diastolic 80–95; TEMP 98.4–98.8; O2SAT 93–97
[2024-10-28] MEDS: ACETAMINOPHEN 325 MG TAB PO ONE (04:44)
[2024-10-28 06:10] LABS: HEMATOCRIT 35.6 % (36.0-47.0); HEMOGLOBIN 12.2 g/dl (12.0-15.5); MEAN CORPUSCULAR HEMOGLOBIN 30.6 pg (27.0-33.0); MEAN CORPUSCULAR HGB CONC 34.3 g/dl (32.0-36.5); MEAN CORPUSCULAR VOLUME 89.2 fl (80.0-96.0); PLATELET COUNT, AUTOMATED 202 10^3/uL (150-450); RED BLOOD COUNT 3.99 10^6/uL (4.00-5.40); WHITE BLOOD COUNT 15.8 10^3/uL (4.0-10.0)
[2024-10-28 06:22] LABS: HEMOGLOBIN A1c 5.2 % (4.0-6.0)
[2024-10-28] MEDS: INSULIN LISPRO (NovoLOG) PER UNIT SC SCH (07:00)
[2024-10-28 07:04] LABS: ALBUMIN 2.4 G/DL (3.2-5.2); BILIRUBIN,TOTAL 0.4 MG/DL (0.3-1.2); CHOLESTEROL RISK RATIO 3.69 (<5); CREATININE FOR GFR 2.18 MG/DL (0.55-1.30); GLOMERULAR FILTRATION RATE 28.1 (>58); HDL CHOLESTEROL 44.4 MG/DL (>40); LDL CHOLESTEROL 97.6 MG/DL (<100); NON-HDL-C 119.6 MG/DL; POTASSIUM SERUM 4.5 MMOL/L (3.5-5.1); TOTAL PROTEIN 5.3 G/DL (5.7-8.2)
[2024-10-28 22:27] LABS: HCV RNA QUANTITATION <15 NOT DETECTED IU/mL (NOT DETECTED); HCV RNA log10 <1.18 NOT DETECTED Log IU/mL (NOT DETECTED)
[2024-10-29] VITALS (9 sets, daily range): BP systolic 158–181; BP diastolic 84–99; PULSE 63–85; TEMP 98–99.6; O2SAT 91–98
[2024-10-29 06:16] LABS: HEMATOCRIT 34.9 % (36.0-47.0); HEMOGLOBIN 11.8 g/dl (12.0-15.5); MEAN CORPUSCULAR HEMOGLOBIN 30.3 pg (27.0-33.0); MEAN CORPUSCULAR HGB CONC 33.8 g/dl (32.0-36.5); MEAN CORPUSCULAR VOLUME 89.5 fl (80.0-96.0); PLATELET COUNT, AUTOMATED 188 10^3/uL (150-450); WHITE BLOOD COUNT 14.5 10^3/uL (4.0-10.0)
[2024-10-29 06:50] LABS: C REACTIVE PROTEIN QUANTITATIV 3.67 MG/DL (<1.0)
[2024-10-29 06:51] LABS: ALBUMIN 2.5 G/DL (3.2-5.2); BILIRUBIN,TOTAL 0.6 MG/DL (0.3-1.2); CALCIUM LEVEL 8.7 MG/DL (8.5-10.1); CREATININE FOR GFR 1.52 MG/DL (0.55-1.30); GLOMERULAR FILTRATION RATE 43.4 (>58); TOTAL PROTEIN 5.3 G/DL (5.7-8.2)
[2024-10-29] MEDS: PIPERACILLIN/TAZOBACTAM SOD 3.375 GM in DEXTROSE 5% (D5W) ADV/MINI-BAG 50 ML IV SCH (09:18)
[2024-10-29] MEDS: THIAMINE 100 MG TAB PO SCH (13:30)
[2024-10-29] MEDS: DOXYCYCLINE HYCLATE 100MG TABLET PO SCH (17:42)
[2024-10-29] MEDS: MORPHINE 2 MG/ML 1ML VIAL IV ONE (18:08)
[2024-10-29] MEDS ORDERED: PROHANCE 279.3MG/ML 15ML VIAL As Ordered ONE (22:27)
[2024-10-29] MEDS: MORPHINE 4 MG/ML 1ML VIAL IV PRN (23:00)
[2024-10-30] VITALS (22 sets, daily range): BP systolic 131–171; BP diastolic 87–99; TEMP 97.4–99.6; O2SAT 93–99
[2024-10-30] MEDS: OLANZapine 5 MG TAB PO PRN (04:18)
[2024-10-30 06:54] LABS: HEMATOCRIT 42.4 % (36.0-47.0); MEAN CORPUSCULAR HEMOGLOBIN 30.4 pg (27.0-33.0); MEAN CORPUSCULAR HGB CONC 34.7 g/dl (32.0-36.5); MEAN CORPUSCULAR VOLUME 87.8 fl (80.0-96.0); PLATELET COUNT, AUTOMATED 234 10^3/uL (150-450); RED BLOOD COUNT 4.83 10^6/uL (4.00-5.40); WHITE BLOOD COUNT 11.9 10^3/uL (4.0-10.0)
[2024-10-30 07:04] LABS: HEMOGLOBIN 14.7 g/dl (12.0-15.5)
[2024-10-30 07:20] LABS: C REACTIVE PROTEIN QUANTITATIV 7.51 MG/DL (<1.0)
[2024-10-30 07:45] LABS: ALBUMIN 2.7 G/DL (3.2-5.2); BILIRUBIN,TOTAL 4.4 MG/DL (0.3-1.2); CALCIUM LEVEL 8.8 MG/DL (8.5-10.1); CREATININE FOR GFR 1.37 MG/DL (0.55-1.30); GLOMERULAR FILTRATION RATE 49.1 (>58); POTASSIUM SERUM 4.2 MMOL/L (3.5-5.1); TOTAL PROTEIN 6.1 G/DL (5.7-8.2)
[2024-10-30] MEDS: oxyCODONE 5MG TAB PO PRN (14:23)
[2024-10-30] MEDS: LACTOBACILLUS ACIDOPHILUS CAP (BACID) PO SCH (17:43)
[2024-10-31] VITALS (26 sets, daily range): BP systolic 127–145; BP diastolic 75–91; TEMP 97.1–100.5; O2SAT 92–97
[2024-10-31 05:43] LABS: HEMOGLOBIN 14.5 g/dl (12.0-15.5); MEAN CORPUSCULAR HEMOGLOBIN 30.2 pg (27.0-33.0); MEAN CORPUSCULAR HGB CONC 34.5 g/dl (32.0-36.5); MEAN CORPUSCULAR VOLUME 87.5 fl (80.0-96.0); PLATELET COUNT, AUTOMATED 244 10^3/uL (150-450); WHITE BLOOD COUNT 15.1 10^3/uL (4.0-10.0)
[2024-10-31 06:47] LABS: ALBUMIN 2.5 G/DL (3.2-5.2); C REACTIVE PROTEIN QUANTITATIV 12.44 MG/DL (<1.0); CALCIUM LEVEL 8.6 MG/DL (8.5-10.1); CREATININE FOR GFR 1.34 MG/DL (0.55-1.30); GLOMERULAR FILTRATION RATE 50.5 (>58); POTASSIUM SERUM 4.2 MMOL/L (3.5-5.1); TOTAL PROTEIN 5.7 G/DL (5.7-8.2)
[2024-10-31] MEDS ORDERED: VANCOMYCIN HCL 1,000 MG, VIAL MATE ADAPTER 1 EACH in NS 250 ML IV SCH (15:25)
[2024-10-31] MEDS: VANCOMYCIN HCL 1,500 MG, VIAL MATE ADAPTER 1 EACH in NS 500 ML IV ONE (16:33)
[2024-11-01] VITALS (12 sets, daily range): BP systolic 113–130; BP diastolic 71–80; TEMP 97–99.4; O2SAT 93–97
[2024-11-01] MEDS: oxyCODONE 5MG TAB PO PRN (01:18)
[2024-11-01 06:00] LABS: HEMATOCRIT 39.6 % (36.0-47.0); HEMOGLOBIN 13.5 g/dl (12.0-15.5); MEAN CORPUSCULAR HEMOGLOBIN 30.5 pg (27.0-33.0); MEAN CORPUSCULAR HGB CONC 34.1 g/dl (32.0-36.5); MEAN CORPUSCULAR VOLUME 89.4 fl (80.0-96.0); PLATELET COUNT, AUTOMATED 268 10^3/uL (150-450); RED BLOOD COUNT 4.43 10^6/uL (4.00-5.40); WHITE BLOOD COUNT 14.8 10^3/uL (4.0-10.0)
[2024-11-01 06:51] LABS: ALBUMIN 2.3 G/DL (3.2-5.2); C REACTIVE PROTEIN QUANTITATIV 12.59 MG/DL (<1.0); CALCIUM LEVEL 8.4 MG/DL (8.5-10.1); CREATININE FOR GFR 1.18 MG/DL (0.55-1.30); GLOMERULAR FILTRATION RATE 58.8 (>58); POTASSIUM SERUM 4.2 MMOL/L (3.5-5.1); TOTAL PROTEIN 5.4 G/DL (5.7-8.2)
[2024-11-01] MEDS: FUROSEMIDE 20MG/2ML VIAL IV ONE (08:37)
[2024-11-01] MEDS: VANCOMYCIN HCL 1,250 MG, VIAL MATE ADAPTER 1 EACH in NS 250 ML IV SCH (09:52)
[2024-11-01] MEDS: MIRALAX *UNIT DOSE* 17GM PACKET PO SCH (15:10)
[2024-11-01] MEDS: VANCOMYCIN HCL 750 MG, VIAL MATE ADAPTER 1 EACH in NS 250 ML IV SCH (22:28)
[2024-11-02] VITALS (7 sets, daily range): BP systolic 113–128; BP diastolic 69–79; TEMP 97.5–98.8; O2SAT 94–98
[2024-11-02 06:38] LABS: HEMATOCRIT 37.3 % (36.0-47.0); HEMOGLOBIN 12.6 g/dl (12.0-15.5); MEAN CORPUSCULAR HGB CONC 33.8 g/dl (32.0-36.5); MEAN CORPUSCULAR VOLUME 88.8 fl (80.0-96.0); PLATELET COUNT, AUTOMATED 273 10^3/uL (150-450); WHITE BLOOD COUNT 12.5 10^3/uL (4.0-10.0)
[2024-11-02 07:01] LABS: ALBUMIN 2.4 G/DL (3.2-5.2); BILIRUBIN,TOTAL 2.2 MG/DL (0.3-1.2); C REACTIVE PROTEIN QUANTITATIV 8.76 MG/DL (<1.0); CALCIUM LEVEL 8.5 MG/DL (8.5-10.1); CREATININE FOR GFR 1.16 MG/DL (0.55-1.30); POTASSIUM SERUM 3.9 MMOL/L (3.5-5.1); TOTAL PROTEIN 5.4 G/DL (5.7-8.2)
[2024-11-02] MEDS ORDERED: PILL CUTTER 1 EACH XX ONE (08:16)
[2024-11-02] MEDS: VANCOMYCIN HCL 1,000 MG, VIAL MATE ADAPTER 1 EACH in NS 250 ML IV SCH (10:21)
[2024-11-03 03:48] VITALS: BP 151/91; TEMP 99.1; O2SAT 95
[2024-11-03 08:00] VITALS: BP 141/65
[2024-11-03 09:32] LABS: HEMATOCRIT 34.5 % (36.0-47.0); HEMOGLOBIN 11.8 g/dl (12.0-15.5); MEAN CORPUSCULAR HEMOGLOBIN 30.6 pg (27.0-33.0); MEAN CORPUSCULAR HGB CONC 34.2 g/dl (32.0-36.5); MEAN CORPUSCULAR VOLUME 89.4 fl (80.0-96.0); PLATELET COUNT, AUTOMATED 310 10^3/uL (150-450); RED BLOOD COUNT 3.86 10^6/uL (4.00-5.40)
[2024-11-03 09:58] LABS: ALBUMIN 2.3 G/DL (3.2-5.2); BILIRUBIN,TOTAL 1.4 MG/DL (0.3-1.2); CALCIUM LEVEL 8.4 MG/DL (8.5-10.1); GLOMERULAR FILTRATION RATE 71.7 (>58); POTASSIUM SERUM 3.7 MMOL/L (3.5-5.1); TOTAL PROTEIN 5.3 G/DL (5.7-8.2)
[2024-11-03] MEDS: VANCOMYCIN HCL 1,000 MG, VIAL MATE ADAPTER 1 EACH in NS 250 ML IV SCH (10:56)
[2024-11-03 12:00] VITALS: BP 113/73; TEMP 98.6; O2SAT 99
[2024-11-03 16:11] VITALS: BP 114/74; TEMP 99.1; O2SAT 99
[2024-11-03 21:15] VITALS: BP 113/74; TEMP 99.1; O2SAT 98
[2024-11-04 00:07] VITALS: BP 114/73; TEMP 98.2; O2SAT 97
[2024-11-04 04:43] VITALS: BP 116/76; TEMP 99.3; O2SAT 96
[2024-11-04 06:33] LABS: HEMATOCRIT 35.2 % (36.0-47.0); HEMOGLOBIN 11.7 g/dl (12.0-15.5); MEAN CORPUSCULAR HGB CONC 33.2 g/dl (32.0-36.5); MEAN CORPUSCULAR VOLUME 90.3 fl (80.0-96.0); PLATELET COUNT, AUTOMATED 358 10^3/uL (150-450); WHITE BLOOD COUNT 10.8 10^3/uL (4.0-10.0)
[2024-11-04 07:02] LABS: ALBUMIN 2.3 G/DL (3.2-5.2); BILIRUBIN,TOTAL 1.6 MG/DL (0.3-1.2); CALCIUM LEVEL 8.7 MG/DL (8.5-10.1); CREATININE FOR GFR 0.93 MG/DL (0.55-1.30); GLOMERULAR FILTRATION RATE 78.2 (>58); TOTAL PROTEIN 5.3 G/DL (5.7-8.2)
[2024-11-04 08:00] VITALS: BP 119/77; TEMP 99.1; O2SAT 95
[2024-11-04 12:00] VITALS: BP 104/70; TEMP 99.3; O2SAT 93
[2024-11-04] MEDS: VANICREAM MOISTURIZING SKIN CREAM 113GM TUBE TOP SCH (12:00)
[2024-11-04] MEDS: LINEZOLID 600MG TABLET (ZYVOX) PO SCH (12:00)
[2024-11-04] MEDS ORDERED: MIRA33506 PO (15:50)
[2024-11-04] MEDS ORDERED: LINE1TAB6 PO (15:50)
[2024-11-04] MEDS ORDERED: SENN-188 PO (15:50)
[2024-11-04] MEDS ORDERED: VANI1CRE5 TOP (15:50)
[2024-11-04] MEDS ORDERED: MOM30SS2 PO (15:50)
[2024-11-04] MEDS ORDERED: COLA100C5 PO (15:50)
[2024-11-04] MEDS ORDERED: RISATAB3 PO (15:50)
[2024-11-04] MEDS ORDERED: OXYC-517 PO (15:54)
[2024-11-04 16:00] VITALS: BP 132/81; TEMP 99.4; O2SAT 94
== END 2024-11-04 22:00 | DRG 918 ==
LOC: EDBD 09:27 → M ED 09:27 → M ED INP 16:46 → M PCU 18:25 → M MSPAV 11-02 00:40
PROVIDERS: ADMIT Student in an Organized Health Care Education/Training Program; ATTEND Internal Medicine
DX: T43.592A Poisoning by other antipsychotics and neuroleptics, intentional self-harm, initial encounter (principal); E87.1 Hypo-osmolality and hyponatremia; N13.30 Unspecified hydronephrosis; M62.82 Rhabdomyolysis; N17.9 Acute kidney failure, unspecified; M79.A22 Nontraumatic compartment syndrome of left lower extremity; L03.116 Cellulitis of left lower limb; M60.004 Infective myositis, unspecified left leg; B17.10 Acute hepatitis C without hepatic coma; M79.A9 Nontraumatic compartment syndrome of other sites; F31.9 Bipolar disorder, unspecified; F20.9 Schizophrenia, unspecified; F43.10 Post-traumatic stress disorder, unspecified; E83.41 Hypermagnesemia; E87.5 Hyperkalemia; D72.829 Elevated white blood cell count, unspecified; K59.00 Constipation, unspecified; F11.90 Opioid use, unspecified, uncomplicated; R74.01 Elevation of levels of liver transaminase levels; G43.909 Migraine, unspecified, not intractable, without status migrainosus; K64.8 Other hemorrhoids; Z91.018 Allergy to other foods; Z88.6 Allergy status to analgesic agent; Z88.5 Allergy status to narcotic agent; Z79.899 Other long term (current) drug therapy; M79.7 Fibromyalgia

== ENCOUNTER 2024-11-04 17:26 | Inpatient (IN) | payer MEDICARE, OTHER ==
[~2024-11-04] VITALS: Ht 160 cm; Wt 71.9 kg
[~2024-11-04 17:26] MED LIST changes: +ATOM10CA PO; +CHLO25TA88 PO; +COLA100C5 PO; +LINE1TAB6 PO; +LUMA42CA PO; +MIRA33506 PO; +MOM30SS2 PO; +OXYC-517 PO; +RISATAB3 PO; +SENN-188 PO; -SUCR1ORA2 PO; +SUCR1ORA20 PO; +VANI1CRE5 TOP
[2024-11-04] MEDS ORDERED: traZODone 50 MG TAB PO PRN (18:40)
[2024-11-04] MEDS ORDERED: MOM 30ML SUSPENSION UDC PO PRN (18:40)
[2024-11-04] MEDS ORDERED: MAALOX 30 ML SUSP *UDC PO PRN (18:40)
[2024-11-04 21:47] VITALS: BP 134/91; TEMP 99.4; O2SAT 97
[2024-11-04] MEDS ORDERED: HOME MED LIST COMPLETE! XX SCH (22:30)
[2024-11-05 06:38] VITALS: BP 117/68; TEMP 98; O2SAT 98
[2024-11-05] MEDS: MIRALAX *UNIT DOSE* 17GM PACKET PO SCH (09:00)
[2024-11-05] MEDS ORDERED: SUCRALFATE SUSP 1GM/10ML UD PO PRN (09:15)
[2024-11-05] MEDS ORDERED: MOM 30ML SUSPENSION UDC PO PRN (09:15)
[2024-11-05] MEDS: SENNA 8.6 MG TAB (SENOKOT) PO SCH (09:15)
[2024-11-05] MEDS: OLANZapine 5 MG TAB PO SCH (09:24)
[2024-11-05] MEDS: DOCUSATE SODIUM 100MG CAPSULE PO SCH (09:24)
[2024-11-05] MEDS: VANICREAM MOISTURIZING SKIN CREAM 113GM TUBE TOP SCH (10:59)
[2024-11-05] MEDS: LINEZOLID 600MG TABLET (ZYVOX) PO SCH (11:00)
[2024-11-05] MEDS: LACTOBACILLUS ACIDOPHILUS CAP (BACID) PO SCH (11:14)
[2024-11-05] MEDS: PANTOPRAZOLE 20 MG TAB PO SCH (11:14)
[2024-11-05] MEDS: oxyCODONE 5MG TAB PO PRN (11:17)
[2024-11-05 11:40] LABS: BASO # 0.1 10^3/uL (0.0-0.2); BASO % 0.6 % (0.0-1.0); EOS # 0.1 10^3/uL (0.0-0.5); HEMATOCRIT 37.1 % (36.0-47.0); HEMOGLOBIN 12.4 g/dl (12.0-15.5); LYMPH # 1.3 10^3/uL (1.5-5.0); LYMPH % 11.8 % (24.0-44.0); MEAN CORPUSCULAR HEMOGLOBIN 30.8 pg (27.0-33.0); MEAN CORPUSCULAR HGB CONC 33.4 g/dl (32.0-36.5); MEAN CORPUSCULAR VOLUME 92.3 fl (80.0-96.0); MONO # 0.8 10^3/uL (0.0-0.8); MONO % 7.3 % (2.0-8.0); NEUTROPHILS # 8.8 10^3/uL (1.5-8.5); NEUTROPHILS % 77.2 % (36.0-66.0); PLATELET COUNT, AUTOMATED 389 10^3/uL (150-450); RED BLOOD COUNT 4.02 10^6/uL (4.00-5.40); WHITE BLOOD COUNT 11.4 10^3/uL (4.0-10.0)
[2024-11-05 15:52] VITALS: BP 108/60; TEMP 99; O2SAT 94
[2024-11-05] MEDS: diphenhydrAMINE 25MG CAP PO PRN (16:35)
[2024-11-05] MEDS ORDERED: LACTOBACILLUS ACIDOPHILUS CAP (BACID) PO SCH (18:00)
[2024-11-05 18:34] VITALS: BP 125/71; TEMP 98.2; O2SAT 97
[2024-11-06 06:39] VITALS: BP 146/83; TEMP 97.6; O2SAT 99
[2024-11-06] MEDS: oxyCODONE 5MG TAB PO PRN (08:48)
[2024-11-06] MEDS: OLANZapine ORAL DISINTEGRATING TAB 5MG PO PRN (11:13)
[2024-11-06 17:25] VITALS: BP 127/72; TEMP 97.2; O2SAT 95
[2024-11-07 06:48] VITALS: BP 119/71; TEMP 96.8; O2SAT 95
[2024-11-07 07:12] LABS: BASO # 0.1 10^3/uL (0.0-0.2); BASO % 0.7 % (0.0-1.0); EOS # 0.2 10^3/uL (0.0-0.5); EOS % 1.9 % (0.0-3.0); HEMATOCRIT 33.1 % (36.0-47.0); HEMOGLOBIN 11.1 g/dl (12.0-15.5); LYMPH # 2.1 10^3/uL (1.5-5.0); LYMPH % 21.4 % (24.0-44.0); MEAN CORPUSCULAR HEMOGLOBIN 30.4 pg (27.0-33.0); MEAN CORPUSCULAR HGB CONC 33.5 g/dl (32.0-36.5); MEAN CORPUSCULAR VOLUME 90.7 fl (80.0-96.0); MONO # 0.8 10^3/uL (0.0-0.8); MONO % 8.5 % (2.0-8.0); NEUTROPHILS # 6.3 10^3/uL (1.5-8.5); NEUTROPHILS % 64.3 % (36.0-66.0); PLATELET COUNT, AUTOMATED 505 10^3/uL (150-450); RED BLOOD COUNT 3.65 10^6/uL (4.00-5.40); WHITE BLOOD COUNT 9.8 10^3/uL (4.0-10.0)
[2024-11-07 15:57] VITALS: BP 125/64; TEMP 97.9; O2SAT 97
[2024-11-07] MEDS: PRAZOSIN 1 MG CAP PO SCH (21:05)
[2024-11-08 06:30] VITALS: BP 118/66; TEMP 98.4; O2SAT 96
[2024-11-08 14:29] VITALS: BP 115/70; TEMP 98.6; O2SAT 99
[2024-11-09 06:28] VITALS: BP 109/63; TEMP 97.8; O2SAT 98
[2024-11-09] MEDS: VANICREAM MOISTURIZING SKIN CREAM 113GM TUBE TOP PRN (09:27)
[2024-11-09 17:22] VITALS: BP 133/73; TEMP 98.1; O2SAT 97
[2024-11-10 06:34] VITALS: BP 122/63; TEMP 97.6; O2SAT 95
[2024-11-10 16:05] VITALS: BP 111/70; TEMP 97.8; O2SAT 98
[2024-11-10] MEDS: OLANZapine 10 MG TAB PO SCH (20:07)
[2024-11-11 06:43] VITALS: BP 123/71; TEMP 97.5; O2SAT 96
[2024-11-11] MEDS: OLANZapine 5 MG TAB PO SCH (08:47)
[2024-11-11 15:44] VITALS: BP 158/75; TEMP 97; O2SAT 100
[2024-11-12 06:30] VITALS: BP 112/57; TEMP 97.9; O2SAT 97
[2024-11-12 09:29] VITALS: BP 112/57; TEMP 97.9; O2SAT 97
[2024-11-12 14:18] VITALS: BP 111/74; TEMP 97.7; O2SAT 97
[2024-11-12] MEDS: PROPRANOLOL 10 MG TAB PO SCH (14:18)
[2024-11-12] MEDS: oxyCODONE 5MG TAB PO PRN (15:57)
[2024-11-13 06:36] VITALS: BP 105/66; TEMP 97.2; O2SAT 98
[2024-11-13 08:30] VITALS: BP 112/57; TEMP 97.9; O2SAT 97
[2024-11-13 09:27] LABS: HEMATOCRIT 33.4 % (36.0-47.0); HEMOGLOBIN 11.2 g/dl (12.0-15.5); MEAN CORPUSCULAR HEMOGLOBIN 30.7 pg (27.0-33.0); MEAN CORPUSCULAR HGB CONC 33.5 g/dl (32.0-36.5); MEAN CORPUSCULAR VOLUME 91.5 fl (80.0-96.0); PLATELET COUNT, AUTOMATED 509 10^3/uL (150-450); RED BLOOD COUNT 3.65 10^6/uL (4.00-5.40); WHITE BLOOD COUNT 6.3 10^3/uL (4.0-10.0)
[2024-11-13 09:34] LABS: ERYTHROCYTE SEDIMENTATION RATE 27 mm/hr (0-20)
[2024-11-13 09:50] LABS: C REACTIVE PROTEIN QUANTITATIV 0.9 MG/DL (<1.0); CALCIUM LEVEL 9.2 MG/DL (8.5-10.1); CREATININE FOR GFR 0.99 MG/DL (0.55-1.30); GLOMERULAR FILTRATION RATE 72.6 (>58); POTASSIUM SERUM 4.2 MMOL/L (3.5-5.1)
[2024-11-13 15:01] VITALS: BP 112/73; TEMP 97.6; O2SAT 100
[2024-11-14 06:38] VITALS: BP 100/68; TEMP 96.8; O2SAT 95
[2024-11-14 14:47] VITALS: BP 114/73; TEMP 97.4; O2SAT 100
[2024-11-14] MEDS: ACETAMINOPHEN 325 MG TAB PO PRN (19:55)
[2024-11-15 06:57] VITALS: BP 103/56; TEMP 98; O2SAT 96
[2024-11-15 10:37] VITALS: BP 100/64; TEMP 98; O2SAT 96
[2024-11-15 16:11] VITALS: BP 118/83; TEMP 98.1; O2SAT 98
[2024-11-16] MEDS ORDERED: PRAZ1CAP PO (00:08)
[2024-11-16] MEDS ORDERED: OLAN1TAB16 PO (00:08)
[2024-11-16] MEDS ORDERED: PROP10TA56 PO (00:08)
[2024-11-16] MEDS ORDERED: TRAZ-252 PO (00:08)
[2024-11-16] MEDS ORDERED: OLAN1TAB20 PO (00:08)
[2024-11-16 06:46] VITALS: BP 97/57; TEMP 97.8; O2SAT 95
[2024-11-16 08:23] VITALS: BP 110/69
== END 2024-11-16 11:41 | disposition home or self-care (01) | DRG 885 ==
LOC: M PSY 21:41
PROVIDERS: ADMIT Psychiatry & Neurology Psychiatry; ATTEND Psychiatry & Neurology Psychiatry
DX: F20.9 Schizophrenia, unspecified (principal); G92.8 Other toxic encephalopathy; M79.A22 Nontraumatic compartment syndrome of left lower extremity; T43.3X Poisoning by, adverse effect of and underdosing of phenothiazine antipsychotics and neuroleptics; M79.89 Other specified soft tissue disorders; M79.605 Pain in left leg; K59.03 Drug induced constipation; T40.2X5A Adverse effect of other opioids, initial encounter; Z62.810 Personal history of physical and sexual abuse in childhood; Z62.812 Personal history of neglect in childhood; Z87.820 Personal history of traumatic brain injury; Z79.899 Other long term (current) drug therapy; Z88.6 Allergy status to analgesic agent; Z88.5 Allergy status to narcotic agent; Z91.018 Allergy to other foods; Z81.8 Family history of other mental and behavioral disorders

== ENCOUNTER 2025-04-02 15:05 | Inpatient (IN) | payer MEDICARE, OTHER ==
[~2025-04-02] VITALS: Ht 160 cm; Wt 67.3 kg
[~2025-04-02 15:05] MED LIST changes: -LUMA42CA PO; +LUMA42CA4 PO; +NIAC500T26 PO; -NIAC500T93 PO; +OLAN1TAB20 PO; +PRAZ1CAP PO; +PROP10TA56 PO; +ZINC50TA37 PO; -ZINC50TA4 PO
[2025-04-02] MEDS ORDERED: ATOM10CA6 PO (15:20)
[2025-04-02] MEDS ORDERED: GABA-1172 PO (15:20)
[2025-04-02 15:57] LABS: PLATELET COUNT, AUTOMATED 241 10^3/uL (150-450)
[2025-04-02 16:29] LABS: SALICYLATE LEVEL < 3.0 MG/DL (<30)
[2025-04-02 16:30] LABS: ALT/SGPT 49 U/L (7.0-40); AST/SGOT 40 U/L (<34); CALCIUM LEVEL 9.7 MG/DL (8.5-10.1); CARBON DIOXIDE LEVEL 24 MMOL/L (20-31); CHLORIDE LEVEL 105 MMOL/L (98-107); CREATININE FOR GFR 0.98 MG/DL (0.55-1.30); GLOMERULAR FILTRATION RATE 73.5 (>58); POTASSIUM SERUM 3.9 MMOL/L (3.5-5.1); SODIUM LEVEL 138 MMOL/L (136-145)
[2025-04-02 16:32] LABS: ETHYL ALCOHOL (ETHANOL) < 0.003 % (0.000-0.010)
[2025-04-02 17:10] LABS: HCG, SERUM QUALITATIVE NEGATIVE (NEGATIVE)
[2025-04-02] MEDS: OLANZapine ORAL DISINTEGRATING TAB 5MG PO ONE (17:31)
[2025-04-02 18:35] LABS: AMPHETAMINES LEVEL URINE NEGATIVE (NEGATIVE); BARBITURATES URINE NEGATIVE (NEGATIVE); BENZODIAZEPINES URINE NEGATIVE (NEGATIVE); CANNABINOIDS URINE NEGATIVE (NEGATIVE); COCAINE METABOLITE URINE NEGATIVE (NEGATIVE); METHADONE URINE NEGATIVE (NEGATIVE); OPIATES URINE NEGATIVE (NEGATIVE); PHENCYCLIDINE URINE NEGATIVE (NEGATIVE)
[2025-04-02] MEDS ORDERED: PRAZ1CAP PO (19:23)
[2025-04-02] MEDS ORDERED: HOME MED LIST COMPLETE! XX SCH (19:25)
[2025-04-02] MEDS ORDERED: ACETAMINOPHEN 325 MG TAB PO PRN (20:05)
[2025-04-02] MEDS ORDERED: MAALOX 30 ML SUSP *UDC PO PRN (20:05)
[2025-04-02] MEDS ORDERED: MOM 30 ML SUSPENSION UDC PO PRN (20:05)
[2025-04-02 21:00] VITALS: BP 124/86; TEMP 96.7; O2SAT 98
[2025-04-02] MEDS: PRAZOSIN 1 MG CAP PO SCH (21:00)
[2025-04-03 06:47] VITALS: BP 123/74; TEMP 98.1; O2SAT 100
[2025-04-03] MEDS: PANTOPRAZOLE 40MG TAB PO SCH (09:00)
[2025-04-03] MEDS: GABAPENTIN 300 MG CAP PO PRN (09:21)
[2025-04-03] MEDS: ATOMOXETINE HCL 10 MG CAPSULE PO SCH (09:25)
[2025-04-03] MEDS: OLANZapine 5 MG TAB PO PRN (11:04)
[2025-04-03] MEDS: OLANZapine ORAL DISINTEGRATING TAB 5MG PO PRN (16:54)
[2025-04-03] MEDS: OLANZapine 10 MG TAB PO SCH (21:22)
[2025-04-03] MEDS: traZODone 50 MG TAB PO PRN (21:22)
[2025-04-04 06:29] VITALS: BP 129/70; TEMP 97.5; O2SAT 99
[2025-04-04 15:29] VITALS: BP 121/78; TEMP 98; O2SAT 97
[2025-04-05 07:02] VITALS: BP 101/59; TEMP 98; O2SAT 100
[2025-04-05 15:04] VITALS: BP 137/80; TEMP 98.4; O2SAT 96
[2025-04-05 20:19] VITALS: BP 134/82
[2025-04-06] MEDS ORDERED: PRAZ1CAP PO (08:31)
[2025-04-06] MEDS ORDERED: OLAN1TAB20 PO (08:31)
[2025-04-06] MEDS ORDERED: GABA-1172 PO (08:31)
[2025-04-06] MEDS ORDERED: BUSP10TA PO (08:31)
== END 2025-04-06 14:22 | disposition home or self-care (01) | DRG 885 ==
LOC: M ED 15:05 → M ED INP 20:01 → M PSY 21:15
PROVIDERS: ADMIT Psychiatry & Neurology Neurology; ATTEND General Practice
DX: F25.0 Schizoaffective disorder, bipolar type (principal); R45.851 Suicidal ideations; F41.9 Anxiety disorder, unspecified; F43.10 Post-traumatic stress disorder, unspecified; F90.9 Attention-deficit hyperactivity disorder, unspecified type; Z91.148 Patient's other noncompliance with medication regimen for other reason; Z79.899 Other long term (current) drug therapy; Z88.5 Allergy status to narcotic agent; Z88.6 Allergy status to analgesic agent; Z91.018 Allergy to other foods